=== PATIENT | male | born 1945 | race Caucasian/White ===

== ENCOUNTER 2018-08-19 10:45 | Inpatient (IN) | payer OTHER ==
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
[2018-08-19 14:04] LABS: ALBUMIN 3.8 g/dl (3.4-5.0); ALK PHOS 123 U/L (45-117); ANION GAP 7 MMOL/L (8-16); BILIRUBIN,TOTAL 0.4 mg/dL (0.2-1); BLOOD UREA NITROGEN 28 mg/dL (7-18); CALCIUM 8.4 mg/dL (8.5-10.1); CHLORIDE 102 mmol/L (98-107); CO2 28 mmol/L (21-32); CREATININE 1.5 mg/dL (0.55-1.3); GLUCOSE,RANDOM 111 mg/dL (74-106); MAGNESIUM 2.2 mg/dL (1.8-2.4); PHOSPHOROUS 3.6 mg/dL (2.5-4.9); POTASSIUM 4.2 mmol/L (3.5-5.1); SGOT/AST 18 U/L (15-37); SGPT/ALT 30 U/L (13-61); SODIUM 136 mmol/L (136-145); TOT PROT 7.6 g/dl (6.4-8.2)
[2018-08-19 14:10] LABS: INR 1.07 (0.83-1.09); PROTHROMBIN TIME (PATIENT) 12.6 SEC (9.7-13.0)
[2018-08-19 14:13] LABS: ACTIVATED PTT 37.9 SECONDS (25.2-36.5)
[2018-08-19 14:23] LABS: URINE APPEARANCE CLEAR; URINE BILIRUBIN NEGATIVE (<2.0 mg/dL); URINE COLOR LTYELLOW; URINE GLUCOSE (UA) NEGATIVE (NEGATIVE); URINE KETONE NEGATIVE (NEGATIVE); URINE LEUK ESTERASE NEGATIVE (NEGATIVE); URINE NITRITE NEGATIVE (NEGATIVE); URINE PROTEIN NEGATIVE (NEGATIVE); URINE UROBILINOGEN NEGATIVE mg/dL (0.2-1.0)
[2018-08-19 14:30] LABS: URINE HYALINE CAST 3 /lpf; URINE MUCUS RARE
[2018-08-19 14:37] LABS: BASO % 0.9 % (0-2.0); HEMATOCRIT 42.7 % (35.4-49); HEMOGLOBIN 14.1 GM/dL (11.7-16.9); LYMPH % 18.5 % (8-40); MCH 29.7 pg (25.7-33.7); MCHC 33.1 g/dl (32.0-35.9); MEAN CELL VOLUME 89.7 fl (80-96); MEAN PLT VOLUME 8.2 fl (7.5-11.1); MONO % 7.3 % (3.8-10.2); NEUT % 71.3 % (42.8-82.8); PLATELET COUNT 219 K/MM3 (134-434); RBC 4.76 M/mm3 (4.00-5.60); RDW 13.2 % (11.9-15.9); WHITE BLOOD COUNT 7.8 K/mm3 (4.0-10.0)
[2018-08-19] MEDS ORDERED: ACETAMINOPHEN 325 MG TABLET (FP) PO PRN (17:29)
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
[2018-08-19] MEDS ORDERED: HEPARIN NA (PORCINE) 5,000 UNITS/ML 1ML VIAL ONE (22:02)
[2018-08-19] MEDS: HEPARIN NA (PORCINE) 5,000 UNITS/ML 1ML VIAL SQ SCH (22:07)
[2018-08-20 00:29] VITALS: BMI 41.0
[2018-08-20 07:49] LABS: BASO % 0.8 % (0-2.0); EOS % 2.5 % (0-4.5); HEMOGLOBIN 13.4 GM/dL (11.7-16.9); LYMPH % 19.5 % (8-40); MCH 29.3 pg (25.7-33.7); MCHC 32.7 g/dl (32.0-35.9); MEAN CELL VOLUME 89.5 fl (80-96); MEAN PLT VOLUME 8.1 fl (7.5-11.1); NEUT % 68.2 % (42.8-82.8); PLATELET COUNT 200 K/MM3 (134-434); RBC 4.58 M/mm3 (4.00-5.60); RDW 13.4 % (11.9-15.9); WHITE BLOOD COUNT 7.3 K/mm3 (4.0-10.0)
[2018-08-20 08:05] LABS: ALBUMIN 3.5 g/dl (3.4-5.0); ALK PHOS 119 U/L (45-117); ANION GAP 4 MMOL/L (8-16); BILIRUBIN,TOTAL 0.6 mg/dL (0.2-1); BLOOD UREA NITROGEN 28 mg/dL (7-18); CALCIUM 8.6 mg/dL (8.5-10.1); CHLORIDE 103 mmol/L (98-107); CO2 31 mmol/L (21-32); CREATININE 1.5 mg/dL (0.55-1.3); GLUCOSE,RANDOM 132 mg/dL (74-106); POTASSIUM 4.1 mmol/L (3.5-5.1); SGOT/AST 14 U/L (15-37); SGPT/ALT 26 U/L (13-61); SODIUM 137 mmol/L (136-145)
[2018-08-20] MEDS ORDERED: DONEPEZIL HCL 10 MG TABLET (FP) PO SCH ×2 (10:00→22:00)
[2018-08-20] MEDS: HEPARIN NA (PORCINE) 5,000 UNITS/ML 1ML VIAL SQ SCH ×2 (10:02→21:13)
--- NOTE | 2018-08-20 10:04 | EKG ---
Test Reason : Blood Pressure : / mmHG Vent. Rate : 069 BPM Atrial Rate : 069 BPM P-R Int : 182 ms QRS Dur : 074 ms QT Int : 368 ms P-R-T Axes : 015 036 026 degrees QTc Int : 394 ms NORMAL SINUS RHYTHM NORMAL ECG Confirmed by Russ Hernandez MD ([id number]) on 08/20/2018 10:03:51 AM Referred By: Confirmed By:Russ Hernandez MD
--- NOTE | 2018-08-20 10:44 | CONSULT ---
Consult Consult Specialty:: Plastic Surgery Referred by:: Dr Loki Waters Reason for Consultation:: Large Fungating Growth Left Upper Arm - History of Present Illness Chief Complaint: Large Open wound with drainage , wants it taken care of History of Present Illness: History : 72 year old Male seen regarding a large open wound Left upper Arm. Patient states he has had this Open wound which has been increasing in size for several years...recently he decided to have it checked, biopsy revealed Squamous cell CA. 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 [Santyl] 1 applic TP DAILY #90 oint...g. 08/09/18 Donepezil HCl 1 tab PO DAILY 08/09/18 Hydrochlorothiazide [Hctz -] 1 cap PO DAILY 08/09/18 Cyanocobalamin (Vitamin B-12) [Vitamin B-12] 1,000 mcg PO DAILY 08/19/18 Physical Exam Vital Signs: Vital Signs Temperature 97.9 F 08/20/18 06:03 Pulse Rate 71 08/20/18 06:03 Respiratory Rate 19 08/20/18 06:03 Blood Pressure 147/81 08/20/18 06:03 O2 Sat by Pulse Oximetry (%) 96 08/20/18 00:10 Labs: CBC, BMP 08/20/18 07:00 08/20/18 07:00 Assessment/Plan Examination : Large fungating Open wound with raised edges, fungating, erythema at the margins , drainage from Open wound Swelling at the margins, non tender Function : Upper Arm movement present Obese Lymph Nodes : Negative. Secondary lesion noted in the forearm lateral surface , patient thinks it is present for several weeks, it irritating because of rough surface Lower extremities : Right lower leg swelling with discoloration present, ( No c /o pain or cramps) Plan of care : 1. Wide Excision Left upper Arm Squamous Cell Ca 2. Reconstruction with Split skin graft 3. Need Medical evaluation and Clearance for surgery under local with IV Sedation or General anesthesia Procedure Explained to patient, patient coherent . Answered all questions including site of donor site
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
--- NOTE | 2018-08-20 13:12 | CON.ID ---
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 [Santyl] 1 applic TP DAILY #90 oint...g. 08/09/18 Donepezil HCl 1 tab PO DAILY 08/09/18 Hydrochlorothiazide [Hctz -] 1 cap PO DAILY 08/09/18 Cyanocobalamin (Vitamin B-12) [Vitamin B-12] 1,000 mcg PO DAILY 08/19/18 Physical Exam Vital Signs: Vital Signs Temperature 98.2 F 08/20/18 08:00 Pulse Rate 79 08/20/18 08:00 Respiratory Rate 20 08/20/18 08:00 Blood Pressure 161/88 08/20/18 08:00 O2 Sat by Pulse Oximetry (%) 96 08/20/18 08:00 Labs: CBC, BMP 08/20/18 07:00 08/20/18 07:00
--- NOTE | 2018-08-20 13:38 | ECHO ---
Name: LULY MONTOYA Exam:Adult Echocardiogram Study Date: 08/20/2018 12:45 PM Age: 72 yrs Reason For Study: LV Function Height: 70 in Weight: 286 lb BSA: 2.4 m2 MMode/2D Measurements & Calculations Ao root diam: 2.8 cm LAV (MOD-bp): 82.9 ml Doppler Measurements & Calculations MV E max lenin: 80.0 cm/sec Med Peak E' Lenin: 8.6 cm/sec MV A max lenin: 76.2 cm/sec Med E/e': 9.3 MV E/A: 1.1 Lat Peak E' Lenin: 12.5 cm/sec MV dec time: 0.14 sec Lat E/e': 6.4 Procedure A complete two-dimensional transthoracic echocardiogram was performed (2D, M-mode, Doppler and color flow Doppler). The study was technically difficult with many images being suboptimal in quality. Left Ventricle The left ventricle is grossly normal size. Left ventricular systolic function is grossly normal. Ejec tion Fraction = 60%. The transmitral spectral Doppler flow pattern is suggestive of impaired LV relaxation . Regional wall motion abnormalities cannot be excluded due to limited visualization. Right Ventricle The right ventricle is not well visualized. Atria The left atrium is not well visualized. Right atrium not well visualized. Mitral Valve The mitral valve is not well visualized. There is trace mitral regurgitation. Tricuspid Valve The tricuspid valve is not well visualized. There is trace tricuspid regurgitation. There was insuffi cient TR detected to calculate RV systolic pressure. Aortic Valve There is trivial aortic valve thickening. Pulmonic Valve The pulmonic valve is not well visualized. Great Vessels The aortic root is not well visualized. Pericardium/Pleura There is no pericardial effusion. There is no pleural effusion. Interpretation Summary Left ventricular systolic function is grossly normal. Ejection Fraction = 60%. The transmitral spectral Doppler flow pattern is suggestive of impaired LV relaxation. Regional wall motion abnormalities cannot be excluded due to limited visualization. There is trace mitral regurgitation. There is trace tricuspid regurgitation. There was insufficient TR detected to calculate RV systolic pressure. There is trivial aortic valve thickening. The study was technically difficult with many images being suboptimal in quality. MD Russ Hernandez 08/20/2018 01:37 PM
--- NOTE | 2018-08-20 18:06 | PN ---
Progress Note, Physician - Current Medication List Current Medications: Active Medications Acetaminophen (Tylenol -) 650 mg PO Q6H PRN PRN Reason: FEVER Donepezil HCl (Aricept -) 10 mg PO DAILY [facility] Last Admin: 08/20/18 10:00 Dose: Not Given Heparin Sodium (Porcine) (Heparin -) 5,000 unit SQ BID [facility] Last Admin: 08/20/18 10:02 Dose: 5,000 unit - Objective Vital Signs: Vital Signs Temperature 98.4 F 08/20/18 14:26 Pulse Rate 80 08/20/18 14:26 Respiratory Rate 20 08/20/18 08:00 Blood Pressure 164/82 08/20/18 14:26 O2 Sat by Pulse Oximetry (%) 96 08/20/18 08:00 HENT: Yes: Atraumatic Neck: Yes: Supple Cardiovascular: Yes: Regular Rate and Rhythm Respiratory: Yes: CTA Bilaterally Gastrointestinal: Yes: Normal Bowel Sounds Extremities: Yes: Other (left arm wound) Edema: No Peripheral Pulses WNL: Yes Neurological: Yes: Alert, Oriented Labs: CBC, BMP 08/20/18 07:00 08/20/18 07:00 INR, PTT INR 1.07 (0.83-1.09) 08/19/18 13:19 Problem List - Problems (1) Skin carcinoma Code(s): C44.99 - OTHER SPECIFIED MALIGNANT NEOPLASM OF SKIN, UNSPECIFIED (2) Open wound of left upper arm Assessment/Plan: wound care dressing change plastic surgery consult Code(s): S41.102A - UNSPECIFIED OPEN WOUND OF LEFT UPPER ARM, INITIAL ENCOUNTER Qualifiers:
--- NOTE | 2018-08-20 18:34 | PN ---
Teaching Attending Note Name of Resident: Dorothy Laughlin ATTENDING PHYSICIAN STATEMENT I saw and evaluated the patient. I reviewed the resident's note and discussed the case with the resident. I agree with the resident's findings and plan as documented. 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 For wide excision and skin grafting Last Vital Signs Temp Pulse Resp BP Pulse Ox 98.4 F 80 20 164/82 96 08/20/18 14:26 08/20/18 14:26 08/20/18 08:00 08/20/18 14:26 08/20/18 08:00 HEENT: ZACH, EOM Intact Oropharynx: No thrush, No mucositis Neck: Supple Cor: RSR, No murmurs, No gallops Lungs: Clear to P&A Abd: Soft, Normal bowel sounds, No organomegaly Ext:LUE ulcerating lesion left deltoid Stasis lower extremity CBC, BMP 08/20/18 07:00 08/20/18 07:00 INR, PTT INR 1.07 (0.83-1.09) 08/19/18 13:19 Current Medications Generic Name Dose Route Start Last Admin Trade Name Freq PRN Reason Stop Dose Admin Acetaminophen 650 mg 08/19/18 17:29 Tylenol - PO Q6H PRN FEVER Donepezil HCl 10 mg 08/20/18 10:00 08/20/18 10:00 Aricept - PO Not Given DAILY [facility] Heparin Sodium (Porcine) 5,000 unit 08/19/18 22:00 08/20/18 10:02 Heparin - SQ 5,000 unit BID CONNIE Administration OBJECTIVE:Impression: Invasive carcinoma- squamous and baseloid features Plan - wide excision and skin grafting Hematuria-- passing kidney stones last few days - need stone analysis ( has stone ) Elevated Alk Phos- for GGTP Elevated PTT - ? occult liver disease - await GGTP ASSESSMENT AND PLAN:
[2018-08-20] MEDS: HYDROCHLOROTHIAZIDE 25 MG TABLET (FP) PO SCH (21:13)
[2018-08-21] MEDS: HEPARIN NA (PORCINE) 5,000 UNITS/ML 1ML VIAL SQ SCH ×2 (09:28→22:04)
[2018-08-21] MEDS: HYDROCHLOROTHIAZIDE 25 MG TABLET (FP) PO SCH (09:28)
--- NOTE | 2018-08-21 12:29 | PN ---
Progress Note, Physician History of Present Illness: no complaints awaiting for excision of the lesion - Current Medication List Current Medications: Active Medications Acetaminophen (Tylenol -) 650 mg PO Q6H PRN PRN Reason: FEVER Donepezil HCl (Aricept -) 10 mg PO HS [facility] Last Admin: 08/20/18 21:13 Dose: 10 mg Heparin Sodium (Porcine) (Heparin -) 5,000 unit SQ BID [facility] Last Admin: 08/21/18 09:28 Dose: Not Given Hydrochlorothiazide (Hctz -) 25 mg PO DAILY [facility] Last Admin: 08/21/18 09:28 Dose: Not Given - Objective Vital Signs: Vital Signs Temperature 98.0 F 08/21/18 08:00 Pulse Rate 75 08/21/18 08:00 Respiratory Rate 20 08/21/18 08:00 Blood Pressure 142/88 08/21/18 08:00 O2 Sat by Pulse Oximetry (%) 97 08/21/18 08:00 Constitutional: Yes: No Distress, Calm, Obese Cardiovascular: Yes: Regular Rate and Rhythm Respiratory: Yes: Regular, CTA Bilaterally Gastrointestinal: Yes: Normal Bowel Sounds, Soft Musculoskeletal: Yes: WNL Extremities: Yes: Other (left lesion on the hand--carcinoma) Wound/Incision: Yes: Dressing Dry and Intact Neurological: Yes: Alert, Oriented Psychiatric: Yes: Alert, Oriented Labs: CBC, BMP 08/20/18 07:00 08/20/18 07:00 INR, PTT INR 1.07 (0.83-1.09) 08/19/18 13:19 Assessment/Plan Problem List - Problems (1) Skin carcinoma Code(s): C44.99 - OTHER SPECIFIED MALIGNANT NEOPLASM OF SKIN, UNSPECIFIED (2) Open wound of left upper arm Code(s): S41.102A - UNSPECIFIED OPEN WOUND OF LEFT UPPER ARM, INITIAL ENCOUNTER Qualifiers: plan patient for excision rest as per the team
[2018-08-21] MEDS ORDERED: fentaNYL CITRATE 250 MCG/5 ML VIAL ONE (13:14)
[2018-08-21] MEDS ORDERED: MIDAZOLAM HCL 2 MG/2 ML SINGLE DOSE VIAL ONE (13:14)
[2018-08-21] MEDS ORDERED: PROPOFOL 20 ML ONE (13:14)
--- NOTE | 2018-08-21 13:14 | CON.CARD ---
Consult Consult Specialty:: Cardiology Referred by:: Rahul Waters MD Reason for Consultation:: Pre-operative cardiovascular evaluation - History of Present Illness Chief Complaint: Left upper extremity skin cancer History of Present Illness: 72 yr old man with poor medical f/u presented to wound clinic with nonhealing left extremity ulcer progressing for the past 10 yrs and was found to have invasive carcinoma with squamous and basaloid features seen on punch biopsy (2018) underwent wide excision and skin grafting. He remains asymptomatic from CV -standpoint and denies chest pain, dyspnea, palpitations, near or true syncope, orthopnea, PND or LE edema. 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 [Santyl] 1 applic TP DAILY #90 oint...g. 08/09/18 Donepezil HCl 1 tab PO DAILY 08/09/18 Hydrochlorothiazide [Hctz -] 1 cap PO DAILY 08/09/18 Cyanocobalamin (Vitamin B-12) [Vitamin B-12] 1,000 mcg PO DAILY 08/19/18 Vital Signs: Vital Signs Temperature 98.0 F 08/21/18 08:00 Pulse Rate 75 08/21/18 08:00 Respiratory Rate 20 08/21/18 08:00 Blood Pressure 142/88 08/21/18 08:00 O2 Sat by Pulse Oximetry (%) 97 08/21/18 08:00 Constitutional: Yes: No Distress, Calm Neck: Yes: Supple Respiratory: Yes: Regular, CTA Bilaterally Gastrointestinal: Yes: Normal Bowel Sounds, Soft Cardiovascular: Yes: Regular Rate and Rhythm JVD: No Carotid Bruit: No Heart Sounds: Yes: S1, S2 Edema: No - Other Data Labs, Other Data: CBC, BMP 08/20/18 07:00 08/20/18 07:00 INR, PTT INR 1.07 (0.83-1.09) 08/19/18 13:19 NSR@[address]-T changes Ejection Fraction %: LVEF > or = 40 % Imaging - Results Chest X-ray: Report Reviewed (NAD) Problem List - Problems (1) Hypertension Code(s): I10 - ESSENTIAL (PRIMARY) HYPERTENSION Qualifiers: Hypertension type: essential hypertension Qualified Code(s): I10 - Essential (primary) hypertension (2) CKD (chronic kidney disease) Code(s): N18.9 - CHRONIC KIDNEY DISEASE, UNSPECIFIED Qualifiers: Chronic kidney disease stage: stage 2 (mild) Qualified Code(s): N18.2 - Chronic kidney disease, stage 2 (mild) (3) Skin carcinoma Code(s): C44.99 - OTHER SPECIFIED MALIGNANT NEOPLASM OF SKIN, UNSPECIFIED (4) Open wound of left upper arm Code(s): S41.102A - UNSPECIFIED OPEN WOUND OF LEFT UPPER ARM, INITIAL ENCOUNTER Qualifiers: Encounter type: subsequent encounter Assessment/Plan 08/20/2018 Echo: Normal LV size and fxn, tr MR, TR 1. Invasive carcinoma- squamous and baseloid features post wide excision and skin grafting 2. HTN 3. CKD P:1. Continue antihypertensive agent 2. F/u pathology, post-op wound care 3. Thank you for consultative opportunity
[2018-08-21] MEDS ORDERED: ceFAZolin SODIUM 1 GM VIAL IVPB ONE (13:50)
[2018-08-21] MEDS ORDERED: LIDOCAINE 1%/EPI 1:100000 (20 ML MULTI DOSE VIAL) IJ ONE (13:59)
--- NOTE | 2018-08-21 14:42 | PN ---
Progress Note, Physician - Current Medication List Current Medications: Active Medications Acetaminophen (Tylenol -) 650 mg PO Q6H PRN PRN Reason: FEVER Donepezil HCl (Aricept -) 10 mg PO HS [facility] Last Admin: 08/20/18 21:13 Dose: 10 mg Heparin Sodium (Porcine) (Heparin -) 5,000 unit SQ BID [facility] Last Admin: 08/21/18 09:28 Dose: Not Given Hydrochlorothiazide (Hctz -) 25 mg PO DAILY [facility] Last Admin: 08/21/18 09:28 Dose: Not Given - Objective Vital Signs: Vital Signs Temperature 98.0 F 08/21/18 13:59 Pulse Rate 92 H 08/21/18 13:59 Respiratory Rate 20 08/21/18 08:00 Blood Pressure 142/88 08/21/18 13:59 O2 Sat by Pulse Oximetry (%) 97 08/21/18 08:00 Constitutional: Yes: No Distress HENT: Yes: Atraumatic Neck: Yes: Supple Cardiovascular: Yes: Regular Rate and Rhythm Respiratory: Yes: CTA Bilaterally Extremities: Yes: Other (left arm in dressing) Edema: No Peripheral Pulses WNL: No Neurological: Yes: Alert Labs: CBC, BMP 08/20/18 07:00 08/20/18 07:00 INR, PTT INR 1.07 (0.83-1.09) 08/19/18 13:19 Problem List - Problems (1) Skin carcinoma Assessment/Plan: for surgery Code(s): C44.99 - OTHER SPECIFIED MALIGNANT NEOPLASM OF SKIN, UNSPECIFIED (2) Open wound of left upper arm Assessment/Plan: wound care dressing change plastic surgery consult Code(s): S41.102A - UNSPECIFIED OPEN WOUND OF LEFT UPPER ARM, INITIAL ENCOUNTER Qualifiers: Encounter type: subsequent encounter
[2018-08-21] MEDS ORDERED: DESFLURANE GAS 240 ML BOTTLE IH ONE (15:14)
[2018-08-21] MEDS ORDERED: DEXAMETHASONE SOD PHOSPHATE 4 MG/1 ML VIAL ONE (15:40)
[2018-08-21] MEDS ORDERED: BACITRACIN 15 GM TUBE TOPICAL OINTMENT ONE (15:41)
[2018-08-21] MEDS ORDERED: ONDANSETRON 4 MG/2 ML VIAL IVPUSH PRN (16:11)
[2018-08-21] MEDS ORDERED: oxyCODONE HCL 5 MG TABLET PO PRN (16:11)
[2018-08-21] MEDS ORDERED: LACTATED RINGERS SOLUTION 1,000 ML IV SCH (16:15)
--- NOTE | 2018-08-21 18:10 | PN ---
Progress Note (short form) - Note Progress Note: Seen post op In sling Denies significant pains S/P excision of ulerating squamous cell ca with skin grafting - await path.
[2018-08-21] MEDS ORDERED: ACETAMINOPHEN 325 MG TABLET (FP) PO PRN (20:48)
--- NOTE | 2018-08-21 20:59 | OP ---
DATE OF OPERATION: DATE OF DICTATION: 08/21/2018 PREOPERATIVE DIAGNOSIS: 1. 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 2. Tumor left forearm. PROCEDURE: 1. Wide excision basal squamous cell carcinoma left upper arm. 2 . Reconstruction with split thickness skin graft. 3. Excision forearm tumor left. 4. Skin graft. SURGEON: Dylon Henson M.D. ANESTHESIA: General supplemented with 1% lidocaine with epinephrine, total of 20 mL. HISTORY: Patient is 72-year-old male seen at [facility] on consultation regarding a very large nonhealing wound. Patient states this has been there possibly around 7 years. He has been tolerating the wound, but he sought advice from several physicians, including vaguely from a nurse practitioner who has been treating him without healing. PREOPERATIVE DIAGNOSIS: 1. 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 2. Tumor left forearm. FINDINGS: 1. Wide excision basal squamous cell carcinoma measuring over 6.4 x 5.5 x 0.3 cm. 2. Tumor located on the dorsal aspect of his left forearm measures 2.2 cm raised by 0.4 cm. DESCRIPTION OF PROCEDURE: Patient was brought to the operating room. Procedure had been explained in the holding area. All the questions were answered. Markings were carried out staying about 1 cm from the visible margin, large circular markings were carried around the skin and subcutaneous tissue. The patient was then brought to the operating room. Transferred over to the operating table. General anesthesia administered. A timeout carried out. Patient was identified including the procedure and the site. Once agreed, subcutaneous tissue was injected with 1% lidocaine with epinephrine around left forearm. A tumor on the forearm and arm were both injected with the same solution of 1% lidocaine with epinephrine. Skin prep done with Betadine soak and solution and then draped in a standard aseptic manner. Tumor on left forearm was first excised in a circular manner. It measured 0.2 x 0.2, after excision it measured 2.5 x 2.5 cm, full thickness excision was carried out to the level of the fascia. Hemostasis was secured with cautery. Split thickness skin graft was applied to the area, immobilized using Dermabond. Large tumor on left shoulder was then excised vertically down to the fascia. It was then dissected off the fascia using electrocautery. At the midpoint, there was some fibrotic fat which was noted. This was excised, suture was placed for identification of the base. Entire tumor was then sent for pathology with markers placed at 12 o'clock and 6 o'clock and base of the tumor. Skin edges had to be mobilized. Defect was now measuring 10 x 8 cm. Skin edges were then advanced and stabilized using 3.0 undyed Vicryl sutures. Rest of the defect was then reconstructed with split thickness skin graft taken with a brown dermatome and mesh . Skin edges had to be then on skin graft immobilized using gauze as well as Dermabond. Graft was very delicate. It was then stabilized and immobilized using dry gauze followed by Xeroform, bacitracin. Arm was wrapped with Janiya. Entire limb was then immobilized in a sling. Hemostasis was secured with electrocautery. Estimated blood loss was less than 50 mL. Circulation to the fingers was intact. Swelling was 2+ around the hand. Patient was given a gram of Ancef prior to starting the procedure. He had SCDs placed on both his lower extremities including he was given heparin for DVT prophylaxis. Awaiting pathology report. Patient will be needing IV antibiotics due to the significant involvement of the subcutaneous tissue. DYLON HENSON M.D. [id number]
[2018-08-21] MEDS ORDERED: DONEPEZIL HCL 10 MG TABLET (FP) PO SCH (22:00)
[2018-08-22] MEDS ORDERED: HYDROCHLOROTHIAZIDE 25 MG TABLET (FP) PO SCH (10:00)
[2018-08-22] MEDS: HEPARIN NA (PORCINE) 5,000 UNITS/ML 1ML VIAL SQ SCH (10:34)
--- NOTE | 2018-08-22 11:27 | PN ---
Progress Note (short form) - Note Progress Note: Post Op Day 1 Awake, alert, no complaining of pain / Left Arm n loose sling , readjusted to keep it elevated Dressings over the Upper Arm intact, no excessive bleeding Donor site slight oozing, need change. Dr Felton note appreciated, awaiting Path report DR Jordan
--- NOTE | 2018-08-22 11:49 | PN ---
Progress Note (short form) - Note Progress Note: Home Care Instructions 1. No Showers , except sponge Bath 2. Keep dressings dry 3. Home Care Nurses to evaluate for excessive bleeding, fever, unusal pain , in left Arm and Thigh 4. Do not change Left Arm dressing unless falling off, call Dr Jordan for instructions 5 Donor Site Left thigh, expect some oozing, unless excessive call Dr Jordan 6. Assist patient with essentials if needed 7. Check Temperature if over 101F inform MD Follow Up in Wound clinic x 1 week Sunday
--- NOTE | 2018-08-22 15:55 | PN ---
Progress Note, Physician - Current Medication List Current Medications: Active Medications Acetaminophen (Tylenol -) 650 mg PO Q6H PRN PRN Reason: FEVER Donepezil HCl (Aricept -) 10 mg PO HS [facility] Last Admin: 08/21/18 22:03 Dose: 10 mg Heparin Sodium (Porcine) (Heparin -) 5,000 unit SQ BID [facility] Last Admin: 08/22/18 10:34 Dose: 5,000 unit Hydrochlorothiazide (Hctz -) 25 mg PO DAILY [facility] Last Admin: 08/22/18 10:34 Dose: 25 mg - Objective Vital Signs: Vital Signs Temperature 98.0 F 08/22/18 06:00 Pulse Rate 71 08/22/18 06:00 Respiratory Rate 18 08/22/18 06:00 Blood Pressure 120/75 08/22/18 06:00 O2 Sat by Pulse Oximetry (%) 98 08/21/18 18:17 Labs: CBC, BMP 08/20/18 07:00 08/20/18 07:00 INR, PTT INR 1.07 (0.83-1.09) 08/19/18 13:19
[2018-08-22 16:07] VITALS: BP 124/73; PULSE 84; TEMP 98
--- NOTE | 2018-08-22 16:07 | DS ---
Physical Examination Vital Signs: Vital Signs Temperature 98.0 F 08/22/18 06:00 Pulse Rate 71 08/22/18 06:00 Respiratory Rate 18 08/22/18 06:00 Blood Pressure 120/75 08/22/18 06:00 O2 Sat by Pulse Oximetry (%) 98 08/21/18 18:17 Constitutional: Yes: No Distress HENT: Yes: Atraumatic Neck: Yes: Supple Cardiovascular: Yes: Regular Rate and Rhythm Respiratory: Yes: CTA Bilaterally Gastrointestinal: Yes: Normal Bowel Sounds Extremities: Yes: Other (left arm in dressing) Edema: Yes Edema: LUE: Trace Neurological: Yes: Alert, Oriented Labs: CBC, BMP 08/20/18 07:00 08/20/18 07:00 Discharge Summary Reason For Visit: CARCINOMA OF SKIN Current Active Problems CKD (chronic kidney disease) (Acute) Hypertension (Acute) Skin carcinoma (Acute) Condition: Stable - Instructions Diet, Activity, Other Instructions: follow up wound care as per dr crandall Home Care Instructions 1. No Showers , except sponge Bath 2. Keep dressings dry 3. Home Care Nurses to evaluate for excessive bleeding, fever, unusal pain , in left Arm and Thigh 4. Do not change Left Arm dressing unless falling off, call Dr Crandall for instructions 5 Donor Site Left thigh, expect some oozing, unless excessive call Dr Crandall 6. Assist patient with essentials if needed 7. Check Temperature if over 101F inform MD Follow Up in Wound clinic x 1 week Sunday morning - Home Medications Comprehensive Discharge Medication List: Ambulatory Orders Collagenase Clostridium Hist. [Santyl] 1 applic TP DAILY #90 oint...g. 08/09/18 Donepezil HCl 1 tab PO DAILY 08/09/18 Hydrochlorothiazide [Hctz -] 1 cap PO DAILY 08/09/18 Cyanocobalamin (Vitamin B-12) [Vitamin B-12] 1,000 mcg PO DAILY 08/19/18 [facility]
--- NOTE | 2018-08-27 14:28 | PATH ---
Surgical Pathology Report Patient Name: LULY MONTOYA [facility]. Rec. #: [id number] /Age/Gender: 1945 (Age: 72) / M Account: [id number] Location: [address] [place] [address] Taken: 08/21/2018 Received: 08/22/2018 Reported: 08/27/2018 Physicians: Nataly Jordan M.D. PHYSICIAN EMERGENCY DEPT Specimen(s) Received A: LEFT ARM TUMOR/MASS B: LEFT UPPER ARM SQUAMOUS CELL CARCINOMA Clinical History Nonhealing wound times several months? Years Biopsy squamous cell carcinoma, carcinoma of skin left arm (forearm and upper arm) Final Diagnosis A. LEFT ARM TUMOR/MASS, EXCISION: INVASIVE SQUAMOUS CELL CARCINOMA, WELL DIFFERENTIATED, WITH KERATOACANTHOMA FEATURES, MEASURING 0.5 CM IN GREATEST DIMENSION. MARGINS ARE NEGATIVE FOR CARCINOMA. CARCINOMA TO THE CLOSEST SKIN MARGIN IS 5 MM. B. LEFT UPPER ARM SQUAMOUS CELL CARCINOMA, EXCISION: INVASIVE SQUAMOUS CELL CARCINOMA, MODERATELY DIFFERENTIATED, WITH BASALOID FEATURES AND ASSOCIATED ULCERATION, MEASURING 6.3 CM IN GREATEST DIMENSION. LYMPHOVASCULAR INVASION NOT IDENTIFIED. MARGINS ARE NEGATIVE FOR CARCINOMA. CARCINOMA TO THE CLOSEST SKIN MARGIN AND DEEP MARGIN IS 6 MM. Electronically Signed Cora Carrera M.D. Gross Description A. Received in formalin labeled "left arm tumor/mass," is a 1.6 x 1.4 cm freeman, ovoid portion of skin excised to depth of 0.3 cm. There are 2 long sutures marking the 3 o'clock position and 2 short sutures marking the 12 o'clock position, per the surgeon. The epidermal surface displays a 1.0 x 0.8 cm freeman, raised nodule. The specimen is inked as follows: 12:00 to 3:00 to 6:00 blue; 6:00 to 9:00 to 12:00 green; deep black. The specimen is serially sectioned from 12:00 to 6:00. The specimen is entirely and sequentially submitted in 4 cassettes with the 12:00 tip in cassette 1 and the 6:00 tip in cassette 4. B. Received in formalin labeled "left upper arm squamous cell carcinoma," is a 7.4 x 7.2 cm freeman, ovoid portion of skin excised to a depth of 2.7 cm. There are 2 long sutures at the 12 o'clock position, 2 short sutures at the 6 o'clock position and 1 long and 1 short suture at the base of the specimen. The epidermal surface displays a 6.3 x 5.2 cm centrally ulcerated lesion. The lesion is 0.6 cm from the closest (4:00) radial margin. The specimen is inked as follows: 12:00 to 3:00 blue; 3:00 to 6:00 red; 6:00 to 9:00 green; 9:00 to 12:00 yellow; deep black. Prototype Special Build sections are submitted in 15 cassettes as follows: 1-lesion to 1:00; 2-lesion to 2:00; 3-lesion to 3:00; 4-lesion to 4:00; 5-lesion to 5:00; 6-lesion to 6:00; 7-lesion to 7:00; 8-lesion to 8:00; 9-lesion to 9:00; 10-lesion to 10:00; 11-lesion to 11:00; 12-lesion to 12:00; [id number] to deep. DL08/22/2018 [facility]08/22/2018
== END 2018-08-22 18:26 | disposition home health service (06) | DRG 577 ==
LOC: JER 10:45 → JERBED 15:58 → J6S 23:20
PROVIDERS: ADMIT Internal Medicine; ATTEND Internal Medicine
PROC: 0HR Skin and Breast, Replacement (ICD-10-PCS; 2018-08-21)
PROC: 0JBF0ZZ Excision of Left Upper Arm Subcutaneous Tissue and Fascia, Open Approach (ICD-10-PCS; 2018-08-21)
PROC: 0XU Anatomical Regions, Upper Extremities, Supplement (ICD-10-PCS; principal; 2018-08-21 14:00)
DX: C44.629 Squamous cell carcinoma of skin of left upper limb, including shoulder (principal); Z68.41 Body mass index [BMI] 40.0-44.9, adult; N17.9 Acute kidney failure, unspecified; N20.0 Calculus of kidney; R31.9 Hematuria, unspecified; I12.9 Hypertensive chronic kidney disease with stage 1 through stage 4 chronic kidney disease, or unspecified chronic kidney disease; N18.2 Chronic kidney disease, stage 2 (mild); E66.9 Obesity, unspecified
CPT/HCPCS: 36415; 71045-TC-FY; 80053; 81003; 81015; 82550; 82977; 83735; 84100; 84484; 85025; 85610; 85730; 87086; 88307-TC; 93005; 93010; 93306-TC; 94760; 99284-25; G0463-25; J1644

== ENCOUNTER 2022-10-09 12:56 | Observation (INO) | payer OTHER ==
[2022-10-09] MEDS ORDERED: ACETAMINOPHEN 1000 MG/100 ML BAG IVPB ONE (14:57)
[2022-10-09] MEDS ORDERED: VANCOMYCIN 1 GM in D5W (PRE-DOCKED) 1,000 MG/250 ML IVPB ONE (14:57)
[2022-10-09] MEDS ORDERED: ACETAMINOPHEN INJECTION 100 ML IVPB ONE (15:58)
[2022-10-09] MEDS ORDERED: VANCOMYCIN/WATER FOR INJ (PEG) 1,000 MG/200 ML BAG IVPB ONE (15:58)
[2022-10-09 16:48] LABS: BASO % 0.8 % (0-2.0); HEMATOCRIT 39.4 % (35.4-49); HEMOGLOBIN 13.2 GM/dL (11.7-16.9); LYMPH % 14.3 % (8-40); MCH 29.6 pg (25.7-33.7); MCHC 33.5 g/dl (32.0-35.9); MEAN CELL VOLUME 88.4 fl (80-96); MEAN PLT VOLUME 8.2 fl (7.5-11.1); MONO % 7.8 % (3.8-10.2); NEUT % 76.1 % (42.8-82.8); PLATELET COUNT 234 10^3/uL (134-434); RBC 4.46 M/mm3 (4.00-5.60); RDW 14.8 % (11.9-15.9); WHITE BLOOD COUNT 8.5 K/mm3 (4.0-10.0)
[2022-10-09 17:10] LABS: ALBUMIN 3.6 g/dl (3.4-5.0); CALCIUM 8.5 mg/dL (8.5-10.1)
[2022-10-09 17:11] LABS: BLOOD UREA NITROGEN 23.5 mg/dL (7-18)
[2022-10-09 17:14] LABS: CREATININE 1.2 mg/dL (0.55-1.3)
[2022-10-09 17:15] LABS: BILIRUBIN,TOTAL 0.5 mg/dL (0.2-1); TOT PROT 7.3 g/dl (6.4-8.2)
[2022-10-09 17:19] LABS: N-TERMINAL BNP 270.7 pg/ml (5-125)
[2022-10-10] MEDS ORDERED: FUROSEMIDE 40 MG/4 ML INJECTABLE VIAL IVPUSH ONE (00:19)
[2022-10-10 00:57] VITALS: BMI 48.8
[2022-10-10] MEDS: ACETAMINOPHEN 1000 MG/100 ML BAG IVPB PRN ×2 (02:00→14:47)
[2022-10-10] MEDS: FUROSEMIDE 40 MG/4 ML INJECTABLE VIAL IVPUSH SCH ×2 (06:21→14:40)
[2022-10-10] MEDS: VANCOMYCIN/WATER 2 GM/400 ML PREMIX BAG IVPB SCH ×2 (06:21→20:26)
[2022-10-10] MEDS: INSULIN SLIDING SCALE (NOVOLOG) 1 VIAL SQ SCH ×4 (06:39→22:22)
[2022-10-10 09:28] LABS: HEMATOCRIT 40.3 % (35.4-49); HEMOGLOBIN 13.8 GM/dL (11.7-16.9); MCH 30.2 pg (25.7-33.7); MCHC 34.2 g/dl (32.0-35.9); MEAN CELL VOLUME 88.5 fl (80-96); MEAN PLT VOLUME 8.2 fl (7.5-11.1); PLATELET COUNT 264 10^3/uL (134-434); RBC 4.55 M/mm3 (4.00-5.60); RDW 15.1 % (11.9-15.9); WHITE BLOOD COUNT 6.9 K/mm3 (4.0-10.0)
[2022-10-10 09:54] LABS: BLOOD UREA NITROGEN 26.7 mg/dL (7-18)
[2022-10-10 09:57] LABS: ALBUMIN 3.8 g/dl (3.4-5.0); MAGNESIUM 1.9 mg/dL (1.8-2.4)
[2022-10-10 10:01] LABS: CREATININE 1.5 mg/dL (0.55-1.3); PHOSPHOROUS 3.8 mg/dL (2.5-4.9)
[2022-10-10 10:03] LABS: BILIRUBIN,TOTAL 0.6 mg/dL (0.2-1)
[2022-10-10 10:04] LABS: TOT PROT 7.8 g/dl (6.4-8.2)
[2022-10-10 10:06] LABS: ERYTHROCYTE SEDIMENTATION RATE 39 mm/hr (0-20)
[2022-10-10] MEDS: LOSARTAN POTASSIUM 50 MG TABLET PO SCH (12:02)
[2022-10-10] MEDS: ENOXAPARIN NA (PORCINE) 40 MG/0.4 ML DISP.SYRIN SQ SCH ×2 (12:08→22:22)
[2022-10-10] MEDS: PIPERACILLIN/TAZOB 3.375 GM 3.375 GM in DEXTROSE 5%-WATER - 50 ML IVPB SCH ×2 (15:57→18:06)
[2022-10-10] MEDS: DOXYCYCLINE HYCLATE 100 MG CAPSULE PO SCH (18:06)
[2022-10-10] MEDS: DONEPEZIL HCL 10 MG TABLET (FP) PO SCH (22:22)
[2022-10-11] MEDS: PIPERACILLIN/TAZOB 3.375 GM 3.375 GM in DEXTROSE 5%-WATER - 50 ML IVPB SCH ×3 (01:27→18:45)
[2022-10-11] MEDS: FUROSEMIDE 40 MG/4 ML INJECTABLE VIAL IVPUSH SCH (05:46)
[2022-10-11] MEDS ORDERED: VANCOMYCIN/WATER 2 GM/400 ML PREMIX BAG IVPB SCH (06:00)
[2022-10-11] MEDS: INSULIN SLIDING SCALE (NOVOLOG) 1 VIAL SQ SCH ×4 (06:06→22:17)
[2022-10-11] MEDS: DOXYCYCLINE HYCLATE 100 MG CAPSULE PO SCH ×2 (11:30→18:45)
[2022-10-11] MEDS: ENOXAPARIN NA (PORCINE) 40 MG/0.4 ML DISP.SYRIN SQ SCH ×2 (11:31→22:14)
[2022-10-11] MEDS: LOSARTAN POTASSIUM 50 MG TABLET PO SCH (11:31)
[2022-10-11] MEDS: DONEPEZIL HCL 10 MG TABLET (FP) PO SCH (22:11)
[2022-10-12] MEDS: PIPERACILLIN/TAZOB 3.375 GM 3.375 GM in DEXTROSE 5%-WATER - 50 ML IVPB SCH ×3 (02:18→17:28)
[2022-10-12] MEDS: INSULIN SLIDING SCALE (NOVOLOG) 1 VIAL SQ SCH ×4 (06:27→21:36)
[2022-10-12 09:51] LABS: BLOOD UREA NITROGEN 37.6 mg/dL (7-18); CALCIUM 8.9 mg/dL (8.5-10.1); MAGNESIUM 2.1 mg/dL (1.8-2.4)
[2022-10-12 09:53] LABS: CREATININE 1.6 mg/dL (0.55-1.3); PHOSPHOROUS 4.1 mg/dL (2.5-4.9)
[2022-10-12] MEDS ORDERED: PIPERACILLIN/TAZOBACTAM 3.375 GM VIAL IVPB ONE (10:43)
[2022-10-12] MEDS: ENOXAPARIN NA (PORCINE) 40 MG/0.4 ML DISP.SYRIN SQ SCH ×2 (10:45→21:37)
[2022-10-12] MEDS: DOXYCYCLINE HYCLATE 100 MG CAPSULE PO SCH ×2 (10:45→17:28)
[2022-10-12] MEDS: LOSARTAN POTASSIUM 50 MG TABLET PO SCH (10:45)
[2022-10-12] MEDS: NYSTATIN 100,000 UNIT/GM TOPICAL CREAM 15 GM TUBE TP SCH ×2 (15:50→21:37)
[2022-10-12] MEDS: DONEPEZIL HCL 10 MG TABLET (FP) PO SCH (21:36)
[2022-10-13] MEDS: PIPERACILLIN/TAZOB 3.375 GM 3.375 GM in DEXTROSE 5%-WATER - 50 ML IVPB SCH ×3 (01:19→17:29)
[2022-10-13] MEDS: INSULIN SLIDING SCALE (NOVOLOG) 1 VIAL SQ SCH ×4 (07:00→23:55)
[2022-10-13] MEDS: INSULIN (LEVEMIR) 100 UNITS/ML UNITS SQ SCH ×2 (08:48→23:55)
[2022-10-13] MEDS: ENOXAPARIN NA (PORCINE) 40 MG/0.4 ML DISP.SYRIN SQ SCH ×2 (09:38→23:55)
[2022-10-13] MEDS: NYSTATIN 100,000 UNIT/GM TOPICAL CREAM 15 GM TUBE TP SCH ×2 (09:38→23:54)
[2022-10-13] MEDS: DOXYCYCLINE HYCLATE 100 MG CAPSULE PO SCH ×2 (09:38→17:30)
[2022-10-13] MEDS ORDERED: LACTATED RINGERS SOLUTION 1,000 ML/1,000 ML INFUS.BAG IV SCH (10:45)
[2022-10-13 12:31] LABS: CALCIUM 9.1 mg/dL (8.5-10.1)
[2022-10-13 12:32] LABS: BLOOD UREA NITROGEN 39.2 mg/dL (7-18)
[2022-10-13 12:35] LABS: CREATININE 1.7 mg/dL (0.55-1.3)
[2022-10-13] MEDS ORDERED: INSULIN (NOVOLOG) ASPART 100 UNITS/ML 10ML VIAL ONE ×2 (12:58→22:51)
[2022-10-13] MEDS: DONEPEZIL HCL 10 MG TABLET (FP) PO SCH (23:55)
[2022-10-14] MEDS: PIPERACILLIN/TAZOB 3.375 GM 3.375 GM in DEXTROSE 5%-WATER - 50 ML IVPB SCH ×3 (02:13→17:39)
[2022-10-14] MEDS: INSULIN (LEVEMIR) 100 UNITS/ML UNITS SQ SCH ×2 (06:49→22:50)
[2022-10-14] MEDS: INSULIN SLIDING SCALE (NOVOLOG) 1 VIAL SQ SCH ×4 (06:49→22:50)
[2022-10-14 08:58] LABS: EOS % 2.7 % (0-4.5); HEMATOCRIT 39.1 % (35.4-49); LYMPH % 22.1 % (8-40); MCHC 33.2 g/dl (32.0-35.9); MEAN CELL VOLUME 87.5 fl (80-96); NEUT % 65.2 % (42.8-82.8); PLATELET COUNT 233 10^3/uL (134-434); RBC 4.47 M/mm3 (4.00-5.60); WHITE BLOOD COUNT 5.8 K/mm3 (4.0-10.0)
[2022-10-14 09:28] LABS: CALCIUM 9.2 mg/dL (8.5-10.1)
[2022-10-14 09:29] LABS: ALBUMIN 3.5 g/dl (3.4-5.0); BLOOD UREA NITROGEN 36.2 mg/dL (7-18); CREATININE 1.6 mg/dL (0.55-1.3); MAGNESIUM 2.3 mg/dL (1.8-2.4)
[2022-10-14 09:31] LABS: BILIRUBIN,TOTAL 0.6 mg/dL (0.2-1); TOT PROT 7.4 g/dl (6.4-8.2)
[2022-10-14 09:32] LABS: PHOSPHOROUS 3.8 mg/dL (2.5-4.9)
[2022-10-14] MEDS: DOXYCYCLINE HYCLATE 100 MG CAPSULE PO SCH ×2 (09:56→17:39)
[2022-10-14] MEDS: NYSTATIN 100,000 UNIT/GM TOPICAL CREAM 15 GM TUBE TP SCH ×2 (09:58→22:43)
[2022-10-14] MEDS: ENOXAPARIN NA (PORCINE) 40 MG/0.4 ML DISP.SYRIN SQ SCH ×2 (09:58→22:43)
[2022-10-14] MEDS: ACETAMINOPHEN 1000 MG/100 ML BAG IVPB PRN ×2 (12:27→22:44)
[2022-10-14] MEDS: DONEPEZIL HCL 10 MG TABLET (FP) PO SCH (22:43)
[2022-10-15] MEDS: PIPERACILLIN/TAZOB 3.375 GM 3.375 GM in DEXTROSE 5%-WATER - 50 ML IVPB SCH ×3 (03:01→17:56)
[2022-10-15] MEDS: INSULIN (LEVEMIR) 100 UNITS/ML UNITS SQ SCH ×2 (06:37→21:52)
[2022-10-15] MEDS: INSULIN SLIDING SCALE (NOVOLOG) 1 VIAL SQ SCH ×4 (06:37→21:57)
[2022-10-15 08:32] LABS: BASO % 1.1 % (0-2.0); EOS % 2.1 % (0-4.5); HEMATOCRIT 38.5 % (35.4-49); HEMOGLOBIN 12.9 GM/dL (11.7-16.9); LYMPH % 22.6 % (8-40); MCH 29.9 pg (25.7-33.7); MCHC 33.4 g/dl (32.0-35.9); MEAN CELL VOLUME 89.4 fl (80-96); MEAN PLT VOLUME 8.4 fl (7.5-11.1); MONO % 9.8 % (3.8-10.2); NEUT % 64.4 % (42.8-82.8); PLATELET COUNT 233 10^3/uL (134-434); RDW 14.6 % (11.9-15.9); WHITE BLOOD COUNT 5.8 K/mm3 (4.0-10.0)
[2022-10-15 08:59] LABS: BLOOD UREA NITROGEN 33.4 mg/dL (7-18); CALCIUM 8.9 mg/dL (8.5-10.1)
[2022-10-15] MEDS: LOSARTAN POTASSIUM 50 MG TABLET PO SCH (08:59)
[2022-10-15] MEDS: ENOXAPARIN NA (PORCINE) 40 MG/0.4 ML DISP.SYRIN SQ SCH ×2 (08:59→21:51)
[2022-10-15] MEDS: DOXYCYCLINE HYCLATE 100 MG CAPSULE PO SCH ×2 (08:59→17:56)
[2022-10-15] MEDS: NYSTATIN 100,000 UNIT/GM TOPICAL CREAM 15 GM TUBE TP SCH ×2 (09:00→21:52)
[2022-10-15 09:03] LABS: CREATININE 1.5 mg/dL (0.55-1.3)
[2022-10-15] MEDS ORDERED: INSULIN (NOVOLOG) ASPART 100 UNITS/ML 10ML VIAL ONE (12:43)
[2022-10-15] MEDS: ACETAMINOPHEN 500 MG TABLET (FP) PO PRN ×2 (14:57→22:05)
[2022-10-15] MEDS: DONEPEZIL HCL 10 MG TABLET (FP) PO SCH (21:51)
[2022-10-16] MEDS: PIPERACILLIN/TAZOB 3.375 GM 3.375 GM in DEXTROSE 5%-WATER - 50 ML IVPB SCH ×2 (02:12→09:58)
[2022-10-16] MEDS: INSULIN (LEVEMIR) 100 UNITS/ML UNITS SQ SCH ×2 (06:38→21:11)
[2022-10-16] MEDS: INSULIN SLIDING SCALE (NOVOLOG) 1 VIAL SQ SCH ×4 (06:38→21:13)
[2022-10-16 08:33] LABS: CALCIUM 8.8 mg/dL (8.5-10.1)
[2022-10-16 08:34] LABS: BLOOD UREA NITROGEN 30.4 mg/dL (7-18)
[2022-10-16 08:37] LABS: CREATININE 1.5 mg/dL (0.55-1.3)
[2022-10-16] MEDS: NYSTATIN 100,000 UNIT/GM TOPICAL CREAM 15 GM TUBE TP SCH ×2 (09:51→21:07)
[2022-10-16] MEDS: DOXYCYCLINE HYCLATE 100 MG CAPSULE PO SCH ×2 (09:57→17:37)
[2022-10-16] MEDS: ACETAMINOPHEN 500 MG TABLET (FP) PO PRN ×2 (09:57→21:07)
[2022-10-16] MEDS: LOSARTAN POTASSIUM 50 MG TABLET PO SCH (09:58)
[2022-10-16] MEDS: ENOXAPARIN NA (PORCINE) 40 MG/0.4 ML DISP.SYRIN SQ SCH (09:58)
[2022-10-16] MEDS: AMOX TR/POT CLAV 875MG/125MG TABLETS (FP) PO SCH (17:37)
[2022-10-16] MEDS: HEPARIN NA (PORCINE) 5,000 UNITS/ML 1ML VIAL SQ SCH (21:07)
[2022-10-16] MEDS: DONEPEZIL HCL 10 MG TABLET (FP) PO SCH (21:07)
[2022-10-16] MEDS ORDERED: INSULIN (LEVEMIR) 100 UNITS/ML UNITS SQ ONE (21:10)
[2022-10-16] MEDS ORDERED: INSULIN (NOVOLOG) ASPART 100 UNITS/ML 10ML VIAL ONE (21:10)
[2022-10-16] MEDS ORDERED: CLOTRIMAZOLE 1% CREAM TP SCH (22:00)
[2022-10-17] MEDS: INSULIN SLIDING SCALE (NOVOLOG) 1 VIAL SQ SCH ×4 (06:52→22:19)
[2022-10-17] MEDS: HEPARIN NA (PORCINE) 5,000 UNITS/ML 1ML VIAL SQ SCH ×3 (06:52→22:19)
[2022-10-17] MEDS: INSULIN (LEVEMIR) 100 UNITS/ML UNITS SQ SCH ×2 (06:52→22:19)
[2022-10-17 08:22] LABS: BASO % 1.1 % (0-2.0); EOS % 1.9 % (0-4.5); HEMATOCRIT 39.1 % (35.4-49); HEMOGLOBIN 12.9 GM/dL (11.7-16.9); LYMPH % 21.9 % (8-40); MCH 29.1 pg (25.7-33.7); MEAN CELL VOLUME 88.1 fl (80-96); MEAN PLT VOLUME 8.2 fl (7.5-11.1); MONO % 8.5 % (3.8-10.2); NEUT % 66.6 % (42.8-82.8); PLATELET COUNT 245 10^3/uL (134-434); RBC 4.43 M/mm3 (4.00-5.60); RDW 15.2 % (11.9-15.9); WHITE BLOOD COUNT 5.9 K/mm3 (4.0-10.0)
[2022-10-17] MEDS: AMOX TR/POT CLAV 875MG/125MG TABLETS (FP) PO SCH ×2 (08:55→17:39)
[2022-10-17 09:09] LABS: ALBUMIN 3.5 g/dl (3.4-5.0); BLOOD UREA NITROGEN 27.6 mg/dL (7-18); CALCIUM 9.1 mg/dL (8.5-10.1); MAGNESIUM 2.2 mg/dL (1.8-2.4)
[2022-10-17 09:13] LABS: CREATININE 1.3 mg/dL (0.55-1.3); PHOSPHOROUS 3.4 mg/dL (2.5-4.9)
[2022-10-17 09:14] LABS: TOT PROT 7.3 g/dl (6.4-8.2)
[2022-10-17 09:15] LABS: BILIRUBIN,TOTAL 0.5 mg/dL (0.2-1)
[2022-10-17] MEDS: LOSARTAN POTASSIUM 50 MG TABLET PO SCH (10:44)
[2022-10-17] MEDS: DOXYCYCLINE HYCLATE 100 MG CAPSULE PO SCH ×2 (10:44→17:39)
[2022-10-17] MEDS: NYSTATIN 100,000 UNIT/GM TOPICAL CREAM 15 GM TUBE TP SCH ×2 (13:52→22:19)
[2022-10-17] MEDS: ACETAMINOPHEN 500 MG TABLET (FP) PO PRN ×2 (13:57→22:17)
[2022-10-17] MEDS ORDERED: INSULIN (NOVOLOG) ASPART 100 UNITS/ML 10ML VIAL ONE (21:32)
[2022-10-17] MEDS: DONEPEZIL HCL 10 MG TABLET (FP) PO SCH (22:17)
[2022-10-18] MEDS: HEPARIN NA (PORCINE) 5,000 UNITS/ML 1ML VIAL SQ SCH (06:10)
[2022-10-18] MEDS: INSULIN SLIDING SCALE (NOVOLOG) 1 VIAL SQ SCH (06:11)
[2022-10-18] MEDS: INSULIN (LEVEMIR) 100 UNITS/ML UNITS SQ SCH (06:11)
[2022-10-18] MEDS: ACETAMINOPHEN 500 MG TABLET (FP) PO PRN (06:11)
[2022-10-18 06:50] VITALS: RESP 18
[2022-10-18 07:49] LABS: BASO % 1.1 % (0-2.0); EOS % 1.6 % (0-4.5); HEMATOCRIT 38.5 % (35.4-49); HEMOGLOBIN 12.6 GM/dL (11.7-16.9); LYMPH % 27.8 % (8-40); MCH 28.9 pg (25.7-33.7); MCHC 32.8 g/dl (32.0-35.9); MEAN CELL VOLUME 88.1 fl (80-96); MONO % 6.9 % (3.8-10.2); NEUT % 62.6 % (42.8-82.8); PLATELET COUNT 245 10^3/uL (134-434); RBC 4.37 M/mm3 (4.00-5.60); RDW 14.7 % (11.9-15.9); WHITE BLOOD COUNT 5.5 K/mm3 (4.0-10.0)
[2022-10-18 08:09] LABS: ALBUMIN 3.4 g/dl (3.4-5.0); CALCIUM 8.8 mg/dL (8.5-10.1)
[2022-10-18 08:12] LABS: CREATININE 1.3 mg/dL (0.55-1.3); PHOSPHOROUS 3.5 mg/dL (2.5-4.9)
[2022-10-18 08:13] LABS: BILIRUBIN,TOTAL 0.6 mg/dL (0.2-1); TOT PROT 7.2 g/dl (6.4-8.2)
[2022-10-18 08:41] VITALS: BP 139/74; PULSE 73; TEMP 98.2
[2022-10-18] MEDS: AMOX TR/POT CLAV 875MG/125MG TABLETS (FP) PO SCH (08:42)
[2022-10-18] MEDS: DOXYCYCLINE HYCLATE 100 MG CAPSULE PO SCH (09:25)
[2022-10-18] MEDS: LOSARTAN POTASSIUM 50 MG TABLET PO SCH (09:25)
[2022-10-18] MEDS: NYSTATIN 100,000 UNIT/GM TOPICAL CREAM 15 GM TUBE TP SCH (09:26)
== END 2022-10-18 11:35 | disposition home health service (06) ==
LOC: JER 12:56 → UNDOADMOB 17:47 → UNDOADMIN 17:47 → INTOOBSV 17:47 → JERBED 17:47 → J5S 23:33 → JERBED 10-11 14:56 → J5S 10-11 14:56 → J7W 10-13 11:12
PROVIDERS: ADMIT Internal Medicine; ATTEND Internal Medicine
PROC: 3E033NZ Introduction of Analgesics, Hypnotics, Sedatives into Peripheral Vein, Percutaneous Approach (ICD-10-PCS; principal; 2022-10-11)
PROC: 3E03329 Introduction of Other Anti-infective into Peripheral Vein, Percutaneous Approach (ICD-10-PCS; 2022-10-11)
PROC: 3E013VG Introduction of Insulin into Subcutaneous Tissue, Percutaneous Approach (ICD-10-PCS; 2022-10-11)
PROC: 3E023GC Introduction of Other Therapeutic Substance into Muscle, Percutaneous Approach (ICD-10-PCS; 2022-10-11)
PROC: 3E0337Z Introduction of Electrolytic and Water Balance Substance into Peripheral Vein, Percutaneous Approach (ICD-10-PCS; 2022-10-11)
DX: I87.2 Venous insufficiency (chronic) (peripheral) (principal); I89.0 Lymphedema, not elsewhere classified; B35.1 Tinea unguium; F03.90 Unspecified dementia, unspecified severity, without behavioral disturbance, psychotic disturbance, mood disturbance, and anxiety; I10 Essential (primary) hypertension; R06.02 Shortness of breath; R60.0 Localized edema; L53.8 Other specified erythematous conditions; Z29.8 Encounter for other specified prophylactic measures; E11.9 Type 2 diabetes mellitus without complications; E66.01 Morbid (severe) obesity due to excess calories; Z68.42 Body mass index [BMI] 45.0-49.9, adult
CPT/HCPCS: 0241U-QW; 36415; 80048; 80053; 82962; 83036; 83735; 83880; 84100; 84484; 85025; 85027; 85651; 86140; 87040; 87081; 93005; 93010; 93970-TC; 96361; 96365; 96372; 96375; 96376; 97116-GP; 97162-GP; 99285-25; G0378; J1644

== ENCOUNTER 2023-01-03 12:15 | Inpatient (IN) | payer OTHER ==
[2023-01-03] MEDS ORDERED: PIPERACILLIN/TAZOB 4.5 GM 4.5 GM in DEXTROSE 5%-WATER 100 ML IVPB ONE (14:13)
[2023-01-03] MEDS ORDERED: VANCOMYCIN 1 GM in D5W (PRE-DOCKED) 1,000 MG/250 ML (RESTRICTED TO ID ONLY IVPB ONE (14:13)
[2023-01-03] MEDS ORDERED: ACETAMINOPHEN 1000 MG/100 ML BAG IVPB ONE (14:15)
[2023-01-03 14:38] LABS: BASO % 0.8 % (0-2.0); EOS % 1.3 % (0-4.5); LYMPH % 14.9 % (8-40); MCH 29.8 pg (25.7-33.7); MEAN CELL VOLUME 87.7 fl (80-96); MEAN PLT VOLUME 8.5 fl (7.5-11.1); MONO % 7.4 % (3.8-10.2); NEUT % 75.6 % (42.8-82.8); PLATELET COUNT 262 10^3/uL (134-434); RBC 4.68 M/mm3 (4.00-5.60); RDW 14.5 % (11.9-15.9); WHITE BLOOD COUNT 8.4 K/mm3 (4.0-10.0)
[2023-01-03 14:56] LABS: POTASSIUM 4.5 mmol/L (3.5-5.1)
[2023-01-03 14:59] LABS: ALBUMIN 3.7 g/dl (3.4-5.0); BLOOD UREA NITROGEN 25.4 mg/dL (7-18)
[2023-01-03 15:02] LABS: CREATININE 1.2 mg/dL (0.55-1.3)
[2023-01-03 15:03] LABS: BILIRUBIN,TOTAL 0.6 mg/dL (0.2-1); TOT PROT 7.8 g/dl (6.4-8.2)
[2023-01-03] MEDS ORDERED: VANCOMYCIN/WATER FOR INJ (PEG) 1,000 MG/200 ML BAG IVPB ONE (16:58)
[2023-01-03 18:22] VITALS: BMI 46.3
[2023-01-03] MEDS ORDERED: PIPERACILLIN/TAZOB 3.375 GM 3.375 GM in DEXTROSE 5%-WATER - 50 ML IVPB SCH (20:00)
[2023-01-03] MEDS ORDERED: VANCOMYCIN 2,000 MG in DEXTROSE 5%-WATER - 500 ML IVPB SCH (22:00)
[2023-01-03] MEDS ORDERED: CEFEPIME HCL/D5W 2 GM/50 ML BAG IVPB SCH (22:00)
[2023-01-03] MEDS: CEFEPIME 2 GM in DEXTROSE 5%-WATER 100 ML IVPB SCH (22:23)
[2023-01-03] MEDS: ENOXAPARIN NA (PORCINE) 40 MG/0.4 ML DISP.SYRIN SQ SCH (22:23)
[2023-01-03] MEDS: ACETAMINOPHEN 325 MG TABLET (FP) PO PRN (22:25)
[2023-01-03] MEDS: INSULIN SLIDING SCALE (NOVOLOG) 1 VIAL SQ SCH (22:31)
[2023-01-04] MEDS: VANCOMYCIN/WATER 2 GRAMS 2,000 MG/400 ML PIGGYBACK IVPB SCH ×2 (01:12→10:52)
[2023-01-04] MEDS: INSULIN SLIDING SCALE (NOVOLOG) 1 VIAL SQ SCH ×4 (06:20→21:21)
[2023-01-04 08:07] LABS: POTASSIUM 4.4 mmol/L (3.5-5.1)
[2023-01-04 08:16] LABS: BASO % 0.8 % (0-2.0); EOS % 1.8 % (0-4.5); HEMATOCRIT 37.2 % (35.4-49); HEMOGLOBIN 12.8 GM/dL (11.7-16.9); LYMPH % 14.7 % (8-40); MCH 30.4 pg (25.7-33.7); MCHC 34.6 g/dl (32.0-35.9); MEAN PLT VOLUME 8.2 fl (7.5-11.1); MONO % 9.6 % (3.8-10.2); NEUT % 73.1 % (42.8-82.8); PLATELET COUNT 226 10^3/uL (134-434); RBC 4.22 M/mm3 (4.00-5.60); RDW 14.4 % (11.9-15.9); WHITE BLOOD COUNT 6.9 K/mm3 (4.0-10.0)
[2023-01-04 08:35] LABS: CALCIUM 9.1 mg/dL (8.5-10.1)
[2023-01-04 08:36] LABS: ALBUMIN 3.2 g/dl (3.4-5.0); BLOOD UREA NITROGEN 28.9 mg/dL (7-18)
[2023-01-04 08:39] LABS: CREATININE 1.4 mg/dL (0.55-1.3)
[2023-01-04 08:40] LABS: BILIRUBIN,TOTAL 0.7 mg/dL (0.2-1)
[2023-01-04] MEDS ORDERED: ACETAMINOPHEN 1000 MG/100 ML BAG IVPB ONE (09:03)
[2023-01-04] MEDS: CEFEPIME 2 GM in DEXTROSE 5%-WATER 100 ML IVPB SCH (09:21)
[2023-01-04] MEDS: ENOXAPARIN NA (PORCINE) 40 MG/0.4 ML DISP.SYRIN SQ SCH ×2 (09:21→21:21)
[2023-01-04] MEDS: LOSARTAN POTASSIUM 50 MG TABLET PO SCH (09:21)
[2023-01-04] MEDS: FUROSEMIDE 20 MG TABLET (FP) PO SCH (09:21)
[2023-01-04] MEDS ORDERED: PIPERACILLIN/TAZOBACTAM 3.375 GM VIAL IVPB ONE (13:07)
[2023-01-04] MEDS: PIPERACILLIN/TAZOB 3.375 GM 3.375 GM in DEXTROSE 5%-WATER - 50 ML IVPB SCH ×2 (13:11→17:16)
[2023-01-04] MEDS ORDERED: INSULIN (NOVOLOG) ASPART 100 UNITS/ML 10ML VIAL ONE (16:33)
[2023-01-04] MEDS: ACETAMINOPHEN 325 MG TABLET (FP) PO PRN ×2 (16:35→23:15)
[2023-01-05] MEDS: PIPERACILLIN/TAZOB 3.375 GM 3.375 GM in DEXTROSE 5%-WATER - 50 ML IVPB SCH ×3 (01:05→17:55)
[2023-01-05] MEDS: INSULIN SLIDING SCALE (NOVOLOG) 1 VIAL SQ SCH ×4 (06:03→21:48)
[2023-01-05 08:42] LABS: POTASSIUM 4.5 mmol/L (3.5-5.1)
[2023-01-05 08:45] LABS: CALCIUM 8.9 mg/dL (8.5-10.1)
[2023-01-05 08:46] LABS: BLOOD UREA NITROGEN 27.4 mg/dL (7-18)
[2023-01-05 08:49] LABS: CREATININE 1.4 mg/dL (0.55-1.3)
[2023-01-05] MEDS ORDERED: PIPERACILLIN/TAZOBACTAM 3.375 GM VIAL IVPB ONE (08:51)
[2023-01-05] MEDS: ENOXAPARIN NA (PORCINE) 40 MG/0.4 ML DISP.SYRIN SQ SCH ×2 (09:03→21:43)
[2023-01-05] MEDS: LOSARTAN POTASSIUM 50 MG TABLET PO SCH (09:03)
[2023-01-05] MEDS: FUROSEMIDE 20 MG TABLET (FP) PO SCH (09:03)
[2023-01-05] MEDS: ACETAMINOPHEN 325 MG TABLET (FP) PO PRN ×2 (11:18→23:20)
[2023-01-05] MEDS ORDERED: FUROSEMIDE 40 MG/4 ML INJECTABLE VIAL IVPUSH ONE (14:00)
[2023-01-06] MEDS: PIPERACILLIN/TAZOB 3.375 GM 3.375 GM in DEXTROSE 5%-WATER - 50 ML IVPB SCH ×3 (01:49→17:38)
[2023-01-06] MEDS: INSULIN SLIDING SCALE (NOVOLOG) 1 VIAL SQ SCH ×4 (06:02→21:36)
[2023-01-06] MEDS ORDERED: INSULIN (LEVEMIR) 100 UNITS/ML UNITS SQ ONE (08:20)
[2023-01-06] MEDS: ENOXAPARIN NA (PORCINE) 40 MG/0.4 ML DISP.SYRIN SQ SCH ×2 (09:22→21:33)
[2023-01-06] MEDS: FUROSEMIDE 40 MG TABLET (FP) PO SCH (09:23)
[2023-01-06] MEDS: LOSARTAN POTASSIUM 50 MG TABLET PO SCH (09:23)
[2023-01-06 09:49] LABS: POTASSIUM 4.3 mmol/L (3.5-5.1)
[2023-01-06 10:13] LABS: BLOOD UREA NITROGEN 29.7 mg/dL (7-18); CALCIUM 9.3 mg/dL (8.5-10.1)
[2023-01-06 10:17] LABS: CREATININE 1.6 mg/dL (0.55-1.3)
[2023-01-06] MEDS: ACETAMINOPHEN 325 MG TABLET (FP) PO PRN ×2 (10:54→17:55)
[2023-01-07] MEDS ORDERED: PIPERACILLIN/TAZOBACTAM 3.375 GM VIAL IVPB ONE (01:11)
[2023-01-07] MEDS: PIPERACILLIN/TAZOB 3.375 GM 3.375 GM in DEXTROSE 5%-WATER - 50 ML IVPB SCH ×3 (01:22→17:38)
[2023-01-07] MEDS: INSULIN SLIDING SCALE (NOVOLOG) 1 VIAL SQ SCH ×4 (06:01→21:40)
[2023-01-07] MEDS ORDERED: INSULIN (NOVOLOG) ASPART 100 UNITS/ML 10ML VIAL ONE (06:59)
[2023-01-07] MEDS: LOSARTAN POTASSIUM 50 MG TABLET PO SCH (09:20)
[2023-01-07] MEDS: ENOXAPARIN NA (PORCINE) 40 MG/0.4 ML DISP.SYRIN SQ SCH ×2 (09:20→21:40)
[2023-01-07] MEDS: FUROSEMIDE 40 MG TABLET (FP) PO SCH (09:20)
[2023-01-07 10:03] LABS: BASO % 1.2 % (0-2.0); EOS % 2.9 % (0-4.5); HEMATOCRIT 37.1 % (35.4-49); HEMOGLOBIN 12.7 GM/dL (11.7-16.9); LYMPH % 18.8 % (8-40); MCHC 34.3 g/dl (32.0-35.9); MEAN CELL VOLUME 87.4 fl (80-96); MEAN PLT VOLUME 8.1 fl (7.5-11.1); MONO % 9.3 % (3.8-10.2); NEUT % 67.8 % (42.8-82.8); PLATELET COUNT 226 10^3/uL (134-434); RBC 4.24 M/mm3 (4.00-5.60); RDW 14.8 % (11.9-15.9); WHITE BLOOD COUNT 5.2 K/mm3 (4.0-10.0)
[2023-01-07 10:12] LABS: POTASSIUM 4.3 mmol/L (3.5-5.1)
[2023-01-07 10:16] LABS: CALCIUM 8.8 mg/dL (8.5-10.1)
[2023-01-07 10:17] LABS: BLOOD UREA NITROGEN 28.2 mg/dL (7-18)
[2023-01-07] MEDS: ACETAMINOPHEN 325 MG TABLET (FP) PO PRN ×2 (10:19→18:26)
[2023-01-07 10:20] LABS: CREATININE 1.5 mg/dL (0.55-1.3)
[2023-01-07] MEDS ORDERED: DOXYCYCLINE INJECTION 100 MG in DEXTROSE 5%-WATER 100 ML IVPB ONE (11:54)
[2023-01-07] MEDS ORDERED: DOXYCYCLINE HYCLATE 100 MG VIAL ONE (13:18)
[2023-01-07] MEDS: DOXYCYCLINE HYCLATE 100 MG CAPSULE PO SCH (17:37)
[2023-01-08] MEDS ORDERED: PIPERACILLIN/TAZOBACTAM 3.375 GM VIAL IVPB ONE (01:09)
[2023-01-08] MEDS: PIPERACILLIN/TAZOB 3.375 GM 3.375 GM in DEXTROSE 5%-WATER - 50 ML IVPB SCH ×3 (01:30→17:09)
[2023-01-08] MEDS: ACETAMINOPHEN 325 MG TABLET (FP) PO PRN (01:31)
[2023-01-08] MEDS: INSULIN SLIDING SCALE (NOVOLOG) 1 VIAL SQ SCH ×4 (06:25→21:28)
[2023-01-08 07:39] LABS: HEMATOCRIT 37.2 % (35.4-49); HEMOGLOBIN 12.8 GM/dL (11.7-16.9); MCHC 34.5 g/dl (32.0-35.9); MEAN CELL VOLUME 86.9 fl (80-96); MEAN PLT VOLUME 8.4 fl (7.5-11.1); PLATELET COUNT 235 10^3/uL (134-434); RBC 4.28 M/mm3 (4.00-5.60); RDW 14.5 % (11.9-15.9); WHITE BLOOD COUNT 5.5 K/mm3 (4.0-10.0)
[2023-01-08 07:52] LABS: POTASSIUM 4.2 mmol/L (3.5-5.1)
[2023-01-08 07:59] LABS: CALCIUM 8.9 mg/dL (8.5-10.1)
[2023-01-08 08:03] LABS: CREATININE 1.5 mg/dL (0.55-1.3); PHOSPHOROUS 4.5 mg/dL (2.5-4.9)
[2023-01-08] MEDS: DOXYCYCLINE HYCLATE 100 MG CAPSULE PO SCH ×2 (10:53→17:08)
[2023-01-08] MEDS: ENOXAPARIN NA (PORCINE) 40 MG/0.4 ML DISP.SYRIN SQ SCH ×2 (10:53→21:24)
[2023-01-08] MEDS: LOSARTAN POTASSIUM 50 MG TABLET PO SCH (10:53)
[2023-01-08] MEDS: FUROSEMIDE 40 MG TABLET (FP) PO SCH (10:54)
[2023-01-08] MEDS: FUROSEMIDE 40 MG TABLET (FP) PO ONE ×2 (13:44→14:38)
[2023-01-08 14:58] VITALS: RESP 18
[2023-01-08] MEDS ORDERED: INSULIN (NOVOLOG) ASPART 100 UNITS/ML 10ML VIAL ONE (21:27)
[2023-01-09] MEDS ORDERED: PIPERACILLIN/TAZOBACTAM 3.375 GM VIAL IVPB ONE (01:17)
[2023-01-09] MEDS: PIPERACILLIN/TAZOB 3.375 GM 3.375 GM in DEXTROSE 5%-WATER - 50 ML IVPB SCH ×3 (02:08→17:17)
[2023-01-09] MEDS: INSULIN SLIDING SCALE (NOVOLOG) 1 VIAL SQ SCH ×4 (06:39→21:48)
[2023-01-09] MEDS ORDERED: INSULIN (NOVOLOG) ASPART 100 UNITS/ML 10ML VIAL ONE ×4 (07:39→21:42)
[2023-01-09] MEDS: LOSARTAN POTASSIUM 50 MG TABLET PO SCH (09:04)
[2023-01-09] MEDS: FUROSEMIDE 40 MG TABLET (FP) PO SCH (09:04)
[2023-01-09] MEDS: ENOXAPARIN NA (PORCINE) 40 MG/0.4 ML DISP.SYRIN SQ SCH ×2 (09:04→21:48)
[2023-01-09] MEDS: DOXYCYCLINE HYCLATE 100 MG CAPSULE PO SCH ×2 (09:04→17:17)
[2023-01-09 12:11] LABS: BASO % 1.2 % (0-2.0); EOS % 2.5 % (0-4.5); HEMATOCRIT 36.4 % (35.4-49); HEMOGLOBIN 12.4 GM/dL (11.7-16.9); LYMPH % 20.2 % (8-40); MCH 29.6 pg (25.7-33.7); MEAN CELL VOLUME 87.1 fl (80-96); MEAN PLT VOLUME 7.9 fl (7.5-11.1); MONO % 10.6 % (3.8-10.2); NEUT % 65.5 % (42.8-82.8); PLATELET COUNT 221 10^3/uL (134-434); RBC 4.18 M/mm3 (4.00-5.60); RDW 14.6 % (11.9-15.9); WHITE BLOOD COUNT 5.1 K/mm3 (4.0-10.0)
[2023-01-09 12:33] LABS: ALBUMIN 3.2 g/dl (3.4-5.0); BLOOD UREA NITROGEN 26.1 mg/dL (7-18); CALCIUM 8.8 mg/dL (8.5-10.1); MAGNESIUM 1.9 mg/dL (1.8-2.4)
[2023-01-09 12:36] LABS: CREATININE 1.7 mg/dL (0.55-1.3); PHOSPHOROUS 3.6 mg/dL (2.5-4.9)
[2023-01-09 12:38] LABS: BILIRUBIN,TOTAL 0.9 mg/dL (0.2-1)
[2023-01-09 12:42] LABS: POTASSIUM 4.2 mmol/L (3.5-5.1)
[2023-01-09] MEDS: INSULIN (LEVEMIR) 100 UNITS/ML UNITS SQ SCH (21:48)
[2023-01-09] MEDS: ACETAMINOPHEN 325 MG TABLET (FP) PO PRN (22:39)
[2023-01-10] MEDS: PIPERACILLIN/TAZOB 3.375 GM 3.375 GM in DEXTROSE 5%-WATER - 50 ML IVPB SCH ×3 (02:56→18:23)
[2023-01-10] MEDS: INSULIN SLIDING SCALE (NOVOLOG) 1 VIAL SQ SCH ×4 (06:42→23:18)
[2023-01-10] MEDS ORDERED: LACTATED RINGERS SOLUTION 1000 ML INFUS.BAG IV ONE (09:48)
[2023-01-10] MEDS ORDERED: LACTATED RINGERS SOLUTION 500 ML IV SCH (10:15)
[2023-01-10] MEDS ORDERED: PIPERACILLIN/TAZOBACTAM 3.375 GM VIAL IVPB ONE (10:20)
[2023-01-10 10:24] LABS: HEMATOCRIT 39.2 % (35.4-49); MCH 29.1 pg (25.7-33.7); MCHC 33.1 g/dl (32.0-35.9); MEAN PLT VOLUME 8.6 fl (7.5-11.1); PLATELET COUNT 239 10^3/uL (134-434); RBC 4.45 M/mm3 (4.00-5.60); RDW 14.4 % (11.9-15.9); WHITE BLOOD COUNT 5.8 K/mm3 (4.0-10.0)
[2023-01-10] MEDS: DOXYCYCLINE HYCLATE 100 MG CAPSULE PO SCH ×2 (10:31→18:23)
[2023-01-10] MEDS: FUROSEMIDE 40 MG TABLET (FP) PO SCH (10:32)
[2023-01-10] MEDS: LOSARTAN POTASSIUM 50 MG TABLET PO SCH (10:32)
[2023-01-10] MEDS: ENOXAPARIN NA (PORCINE) 40 MG/0.4 ML DISP.SYRIN SQ SCH ×2 (10:34→23:19)
[2023-01-10] MEDS ORDERED: INSULIN (NOVOLOG) ASPART 100 UNITS/ML 10ML VIAL ONE ×2 (10:46→22:24)
[2023-01-10 11:09] LABS: BLOOD UREA NITROGEN 28.1 mg/dL (7-18); CALCIUM 9.1 mg/dL (8.5-10.1); MAGNESIUM 2.1 mg/dL (1.8-2.4)
[2023-01-10 11:13] LABS: CREATININE 1.6 mg/dL (0.55-1.3); PHOSPHOROUS 3.7 mg/dL (2.5-4.9)
[2023-01-10] MEDS: amLODIPine BESYLATE 5 MG TABLET (FP) PO SCH (14:33)
[2023-01-10] MEDS: INSULIN (LEVEMIR) 100 UNITS/ML UNITS SQ SCH (23:19)
[2023-01-11] MEDS: ACETAMINOPHEN 325 MG TABLET (FP) PO PRN (00:06)
[2023-01-11] MEDS: PIPERACILLIN/TAZOB 3.375 GM 3.375 GM in DEXTROSE 5%-WATER - 50 ML IVPB SCH ×2 (02:53→09:19)
[2023-01-11] MEDS: INSULIN SLIDING SCALE (NOVOLOG) 1 VIAL SQ SCH ×2 (06:51→11:27)
[2023-01-11 09:12] VITALS: BP 144/70; PULSE 77; TEMP 97.8
[2023-01-11] MEDS: FUROSEMIDE 40 MG TABLET (FP) PO SCH (09:20)
[2023-01-11] MEDS: LOSARTAN POTASSIUM 50 MG TABLET PO SCH (09:20)
[2023-01-11] MEDS: amLODIPine BESYLATE 5 MG TABLET (FP) PO SCH (09:20)
[2023-01-11] MEDS: ENOXAPARIN NA (PORCINE) 40 MG/0.4 ML DISP.SYRIN SQ SCH (09:20)
[2023-01-11] MEDS: DOXYCYCLINE HYCLATE 100 MG CAPSULE PO SCH (09:20)
[2023-01-11 10:21] LABS: BLOOD UREA NITROGEN 28.6 mg/dL (7-18)
[2023-01-11 10:24] LABS: CREATININE 1.5 mg/dL (0.55-1.3)
[2023-01-11] MEDS ORDERED: INSULIN (NOVOLOG) ASPART 100 UNITS/ML 10ML VIAL ONE (11:26)
== END 2023-01-11 14:42 | disposition home or self-care (01) | DRG 872 ==
LOC: JER 12:15 → JERBED 16:28 → OBSVTOIN 17:26 → J6S 17:59
PROVIDERS: ADMIT Internal Medicine; ATTEND Internal Medicine
DX: A41.89 Other specified sepsis (principal); L03.116 Cellulitis of left lower limb; Z68.42 Body mass index [BMI] 45.0-49.9, adult; L03.115 Cellulitis of right lower limb; I12.9 Hypertensive chronic kidney disease with stage 1 through stage 4 chronic kidney disease, or unspecified chronic kidney disease; E11.22 Type 2 diabetes mellitus with diabetic chronic kidney disease; N18.2 Chronic kidney disease, stage 2 (mild); E66.01 Morbid (severe) obesity due to excess calories; I89.0 Lymphedema, not elsewhere classified; I87.2 Venous insufficiency (chronic) (peripheral); E11.65 Type 2 diabetes mellitus with hyperglycemia; B96.20 Unspecified Escherichia coli [E. coli] as the cause of diseases classified elsewhere; B96.4 Proteus (mirabilis) (morganii) as the cause of diseases classified elsewhere; B95.2 Enterococcus as the cause of diseases classified elsewhere; B95.1 Streptococcus, group B, as the cause of diseases classified elsewhere; B95.62 Methicillin resistant Staphylococcus aureus infection as the cause of diseases classified elsewhere; F03.90 Unspecified dementia, unspecified severity, without behavioral disturbance, psychotic disturbance, mood disturbance, and anxiety
CPT/HCPCS: 0241U-QW; 36415; 73590-TC-LT-FY; 73590-TC-RT-FY; 73610-TC-LT-FY; 73610-TC-RT-FY; 73630-TC-LT; 73630-TC-RT-FY; 80048; 80053; 82962; 83036; 83735; 84100; 85025; 85027; 86140; 87040; 87070; 87076; 87077; 87186; 87205; 93005; 93010; 93970-TC; 99285-25; G0378; G0463-25

== ENCOUNTER 2023-02-19 12:19 | Inpatient (IN) | payer OTHER ==
[2023-02-19] MEDS ORDERED: FUROSEMIDE 40 MG/4 ML INJECTABLE VIAL IVPUSH ONE (14:17)
[2023-02-19] MEDS ORDERED: VANCOMYCIN 1 GM in D5W (PRE-DOCKED) 1,000 MG/250 ML (RESTRICTED TO ID ONLY IVPB ONE (14:17)
[2023-02-19] MEDS ORDERED: CEFAZOLIN 1 GM in DEXTROSE 5%-WATER - 50 ML IVPB ONE (14:18)
[2023-02-19] MEDS ORDERED: FUROSEMIDE 40 MG/4 ML INJECTABLE VIAL ONE (14:33)
[2023-02-19] MEDS ORDERED: ceFAZolin SODIUM 1 GM VIAL ONE (14:33)
[2023-02-19] MEDS ORDERED: VANCOMYCIN/WATER FOR INJ (PEG) 1,000 MG/200 ML BAG IVPB ONE (15:08)
[2023-02-19 16:08] LABS: BASO % 0.8 % (0-2.0); EOS % 2.2 % (0-4.5); HEMATOCRIT 37.2 % (35.4-49); HEMOGLOBIN 12.2 GM/dL (11.7-16.9); LYMPH % 15.1 % (8-40); MCH 28.4 pg (25.7-33.7); MCHC 32.8 g/dl (32.0-35.9); MEAN CELL VOLUME 86.8 fl (80-96); MEAN PLT VOLUME 8.3 fl (7.5-11.1); MONO % 9.2 % (3.8-10.2); NEUT % 72.7 % (42.8-82.8); PLATELET COUNT 219 10^3/uL (134-434); RBC 4.29 M/mm3 (4.00-5.60); RDW 15.2 % (11.9-15.9); WHITE BLOOD COUNT 6.7 K/mm3 (4.0-10.0)
[2023-02-19 16:18] LABS: POTASSIUM 4.1 mmol/L (3.5-5.1)
[2023-02-19 16:20] LABS: CALCIUM 8.9 mg/dL (8.5-10.1)
[2023-02-19 16:21] LABS: ALBUMIN 3.3 g/dl (3.4-5.0); BLOOD UREA NITROGEN 29.8 mg/dL (7-18); MAGNESIUM 2.1 mg/dL (1.8-2.4)
[2023-02-19 16:24] LABS: CREATININE 1.6 mg/dL (0.55-1.3)
[2023-02-19 16:25] LABS: BILIRUBIN,TOTAL 0.3 mg/dL (0.2-1); TOT PROT 7.1 g/dl (6.4-8.2)
[2023-02-19 17:56] LABS: N-TERMINAL BNP 131.8 pg/ml (5-450)
[2023-02-19] MEDS ORDERED: AMPICILLIN NA/SULBACTAM NA 3 GM VIAL ONE (19:36)
[2023-02-19] MEDS: AMPICILLIN NA/SULBACTAM NA 3 GM in SODIUM CHLORIDE 100 ML IVPB SCH (20:34)
[2023-02-19] MEDS: DOXYCYCLINE INJECTION 100 MG in DEXTROSE 5%-WATER 100 ML IVPB SCH (22:16)
[2023-02-19] MEDS: HEPARIN NA (PORCINE) 5,000 UNITS/ML 1ML VIAL SQ SCH (22:16)
[2023-02-19] MEDS: ACETAMINOPHEN 1000 MG/100 ML BAG IVPB PRN (23:22)
[2023-02-19] MEDS: INSULIN SLIDING SCALE (NOVOLOG) 1 VIAL SQ SCH (23:29)
[2023-02-20 01:01] VITALS: BMI 50.3
[2023-02-20] MEDS: AMPICILLIN NA/SULBACTAM NA 3 GM in SODIUM CHLORIDE 100 ML IVPB SCH ×3 (03:05→18:45)
[2023-02-20] MEDS: CLOTRIMAZOLE 1%TOPICAL SOLUTION 30 ML BOTTLE TP SCH ×2 (06:05→10:34)
[2023-02-20] MEDS: INSULIN SLIDING SCALE (NOVOLOG) 1 VIAL SQ SCH ×3 (06:48→17:26)
[2023-02-20 08:57] LABS: BASO % 0.7 % (0-2.0); HEMATOCRIT 35.3 % (35.4-49); HEMOGLOBIN 11.9 GM/dL (11.7-16.9); LYMPH % 13.6 % (8-40); MCH 28.9 pg (25.7-33.7); MCHC 33.8 g/dl (32.0-35.9); MEAN CELL VOLUME 85.6 fl (80-96); MONO % 8.2 % (3.8-10.2); NEUT % 75.5 % (42.8-82.8); PLATELET COUNT 214 10^3/uL (134-434); RBC 4.13 M/mm3 (4.00-5.60); RDW 15.2 % (11.9-15.9); WHITE BLOOD COUNT 5.9 K/mm3 (4.0-10.0)
[2023-02-20 09:27] LABS: BLOOD UREA NITROGEN 22.9 mg/dL (7-18); CALCIUM 8.4 mg/dL (8.5-10.1)
[2023-02-20 09:30] LABS: CREATININE 1.4 mg/dL (0.55-1.3)
[2023-02-20] MEDS: HEPARIN NA (PORCINE) 5,000 UNITS/ML 1ML VIAL SQ SCH ×2 (09:51→21:48)
[2023-02-20] MEDS: FUROSEMIDE 40 MG/4 ML INJECTABLE VIAL IVPUSH SCH (09:51)
[2023-02-20] MEDS: DOXYCYCLINE INJECTION 100 MG in DEXTROSE 5%-WATER 100 ML IVPB SCH ×2 (09:52→21:48)
[2023-02-20] MEDS: ACETAMINOPHEN 1000 MG/100 ML BAG IVPB PRN (09:53)
[2023-02-20] MEDS: CLOTRIMAZOLE 1% 10 ML TOPICAL SOLUTION TP SCH ×2 (10:45→21:50)
[2023-02-20 11:11] LABS: ERYTHROCYTE SEDIMENTATION RATE 21 mm/hr (0-20)
[2023-02-20] MEDS: amLODIPine BESYLATE 5 MG TABLET (FP) PO SCH (16:45)
[2023-02-20] MEDS: LOSARTAN POTASSIUM 50 MG TABLET PO SCH (16:45)
[2023-02-21] MEDS: AMPICILLIN NA/SULBACTAM NA 3 GM in SODIUM CHLORIDE 100 ML IVPB SCH ×2 (02:07→09:05)
[2023-02-21] MEDS: INSULIN SLIDING SCALE (NOVOLOG) 1 VIAL SQ SCH ×3 (06:44→16:41)
[2023-02-21] MEDS: ACETAMINOPHEN 325 MG TABLET (FP) PO PRN ×2 (07:53→17:48)
[2023-02-21] MEDS: HEPARIN NA (PORCINE) 5,000 UNITS/ML 1ML VIAL SQ SCH ×2 (09:04→22:48)
[2023-02-21] MEDS: FUROSEMIDE 40 MG/4 ML INJECTABLE VIAL IVPUSH SCH (09:05)
[2023-02-21] MEDS: LOSARTAN POTASSIUM 50 MG TABLET PO SCH (09:05)
[2023-02-21] MEDS: amLODIPine BESYLATE 5 MG TABLET (FP) PO SCH (09:06)
[2023-02-21] MEDS: DOXYCYCLINE INJECTION 100 MG in DEXTROSE 5%-WATER 100 ML IVPB SCH (10:01)
[2023-02-21] MEDS: CLOTRIMAZOLE 1% 10 ML TOPICAL SOLUTION TP SCH ×2 (10:12→22:49)
[2023-02-21 10:22] LABS: BASO % 0.8 % (0-2.0); EOS % 2.6 % (0-4.5); HEMATOCRIT 37.5 % (35.4-49); HEMOGLOBIN 12.6 GM/dL (11.7-16.9); LYMPH % 16.7 % (8-40); MCHC 33.6 g/dl (32.0-35.9); MEAN CELL VOLUME 86.5 fl (80-96); MEAN PLT VOLUME 8.3 fl (7.5-11.1); MONO % 9.5 % (3.8-10.2); NEUT % 70.4 % (42.8-82.8); PLATELET COUNT 216 10^3/uL (134-434); RBC 4.34 M/mm3 (4.00-5.60); RDW 15.3 % (11.9-15.9)
[2023-02-21 10:29] LABS: POTASSIUM 4.3 mmol/L (3.5-5.1)
[2023-02-21 10:34] LABS: CALCIUM 8.9 mg/dL (8.5-10.1)
[2023-02-21 10:35] LABS: ALBUMIN 3.1 g/dl (3.4-5.0)
[2023-02-21 10:38] LABS: CREATININE 1.3 mg/dL (0.55-1.3)
[2023-02-21 10:39] LABS: BILIRUBIN,TOTAL 0.6 mg/dL (0.2-1); TOT PROT 6.6 g/dl (6.4-8.2)
[2023-02-21] MEDS: DOXYCYCLINE HYCLATE 100 MG CAPSULE PO SCH (17:48)
[2023-02-21] MEDS: AMOX TR/POT CLAV 875MG/125MG TABLETS (FP) PO SCH (17:48)
[2023-02-22] MEDS: INSULIN SLIDING SCALE (NOVOLOG) 1 VIAL SQ SCH ×3 (06:46→16:47)
[2023-02-22] MEDS: AMOX TR/POT CLAV 875MG/125MG TABLETS (FP) PO SCH ×2 (09:00→17:19)
[2023-02-22] MEDS: FUROSEMIDE 40 MG/4 ML INJECTABLE VIAL IVPUSH SCH (09:13)
[2023-02-22] MEDS: amLODIPine BESYLATE 5 MG TABLET (FP) PO SCH (09:13)
[2023-02-22] MEDS: HEPARIN NA (PORCINE) 5,000 UNITS/ML 1ML VIAL SQ SCH ×2 (09:13→22:25)
[2023-02-22] MEDS: ACETAMINOPHEN 325 MG TABLET (FP) PO PRN ×2 (09:13→22:44)
[2023-02-22] MEDS: LOSARTAN POTASSIUM 50 MG TABLET PO SCH (09:13)
[2023-02-22] MEDS: CLOTRIMAZOLE 1% 10 ML TOPICAL SOLUTION TP SCH ×2 (09:25→22:24)
[2023-02-22] MEDS: DOXYCYCLINE HYCLATE 100 MG CAPSULE PO SCH ×2 (09:26→17:19)
[2023-02-22] MEDS: MINERAL OIL/PET HY-PHL TOPICAL OINTMENT 454 GM JAR TP SCH (13:11)
[2023-02-23] MEDS: INSULIN SLIDING SCALE (NOVOLOG) 1 VIAL SQ SCH ×2 (06:34→11:43)
[2023-02-23] MEDS: AMOX TR/POT CLAV 875MG/125MG TABLETS (FP) PO SCH (08:53)
[2023-02-23] MEDS: ACETAMINOPHEN 325 MG TABLET (FP) PO PRN (09:21)
[2023-02-23] MEDS: amLODIPine BESYLATE 5 MG TABLET (FP) PO SCH (09:23)
[2023-02-23] MEDS: DOXYCYCLINE HYCLATE 100 MG CAPSULE PO SCH (09:23)
[2023-02-23] MEDS: LOSARTAN POTASSIUM 50 MG TABLET PO SCH (09:23)
[2023-02-23] MEDS: HEPARIN NA (PORCINE) 5,000 UNITS/ML 1ML VIAL SQ SCH (09:23)
[2023-02-23] MEDS: FUROSEMIDE 40 MG/4 ML INJECTABLE VIAL IVPUSH SCH (09:23)
[2023-02-23] MEDS: CLOTRIMAZOLE 1% 10 ML TOPICAL SOLUTION TP SCH (09:27)
[2023-02-23] MEDS: MINERAL OIL/PET HY-PHL TOPICAL OINTMENT 454 GM JAR TP SCH (09:27)
[2023-02-23 10:08] LABS: BASO % 0.8 % (0-2.0); EOS % 3.6 % (0-4.5); HEMATOCRIT 41.3 % (35.4-49); HEMOGLOBIN 13.5 GM/dL (11.7-16.9); LYMPH % 21.7 % (8-40); MCH 28.8 pg (25.7-33.7); MCHC 32.7 g/dl (32.0-35.9); MEAN CELL VOLUME 88.1 fl (80-96); MEAN PLT VOLUME 8.7 fl (7.5-11.1); MONO % 8.2 % (3.8-10.2); NEUT % 65.7 % (42.8-82.8); PLATELET COUNT 260 10^3/uL (134-434); RBC 4.69 M/mm3 (4.00-5.60); RDW 15.3 % (11.9-15.9); WHITE BLOOD COUNT 5.8 K/mm3 (4.0-10.0)
[2023-02-23 10:24] LABS: POTASSIUM 4.1 mmol/L (3.5-5.1)
[2023-02-23 10:28] LABS: ALBUMIN 3.4 g/dl (3.4-5.0); BLOOD UREA NITROGEN 26.3 mg/dL (7-18); CALCIUM 9.4 mg/dL (8.5-10.1)
[2023-02-23 10:31] LABS: CREATININE 1.3 mg/dL (0.55-1.3)
[2023-02-23 10:33] LABS: BILIRUBIN,TOTAL 0.6 mg/dL (0.2-1); TOT PROT 7.5 g/dl (6.4-8.2)
[2023-02-23 13:50] VITALS: BP 149/76; PULSE 82; RESP 18; TEMP 98
== END 2023-02-23 14:11 | disposition home or self-care (01) | DRG 729 ==
LOC: JER 12:19 → JERBED 16:44 → J6S 20:51
PROVIDERS: ADMIT Internal Medicine; ATTEND Internal Medicine
DX: N43.3 Hydrocele, unspecified (principal); L03.115 Cellulitis of right lower limb; Z68.43 Body mass index [BMI] 50.0-59.9, adult; I12.9 Hypertensive chronic kidney disease with stage 1 through stage 4 chronic kidney disease, or unspecified chronic kidney disease; E11.22 Type 2 diabetes mellitus with diabetic chronic kidney disease; N18.2 Chronic kidney disease, stage 2 (mild); E66.01 Morbid (severe) obesity due to excess calories; I87.2 Venous insufficiency (chronic) (peripheral); E87.70 Fluid overload, unspecified; N50.89 Other specified disorders of the male genital organs
CPT/HCPCS: 36415; 71045-TC-FY; 76705-TC; 76870-TC; 80048; 80053; 82962; 83735; 83880; 85025; 85651; 93005; 93010; 97116-GP; 97162-GP; 99285-25; J1644

== ENCOUNTER 2023-10-12 16:45 | Inpatient (IN) | payer OTHER ==
[2023-10-12 16:50] VITALS: BMI 43.0
[2023-10-12 18:11] LABS: BASO % 0.6 % (0-2.0); EOS % 3.3 % (0-4.5); HEMOGLOBIN 14.3 GM/dL (11.7-16.9); LYMPH % 18.8 % (8-40); MCH 30.2 pg (25.7-33.7); MEAN PLT VOLUME 8.3 fl (7.5-11.1); MONO % 8.2 % (3.8-10.2); NEUT % 69.1 % (42.8-82.8); PLATELET COUNT 222 10^3/uL (134-434); RBC 4.72 M/mm3 (4.00-5.60); RDW 14.7 % (11.9-15.9); WHITE BLOOD COUNT 7.2 K/mm3 (4.0-10.0)
[2023-10-12] MEDS ORDERED: PIPERACILLIN/TAZOB 4.5 GM 4.5 GM/100 ML BAG IVPB ONE (18:29)
[2023-10-12] MEDS: PIPERACILLIN/TAZOB 4.5 GM 4.5 GM in DEXTROSE 5%-WATER 100 ML IVPB ONE (18:33)
[2023-10-12 18:37] LABS: POTASSIUM 4.2 mmol/L (3.5-5.1)
[2023-10-12 18:38] LABS: CALCIUM 8.6 mg/dL (8.5-10.1)
[2023-10-12 18:39] LABS: ALBUMIN 3.8 g/dl (3.4-5.0)
[2023-10-12 18:42] LABS: CREATININE 1.3 mg/dL (0.55-1.3)
[2023-10-12 18:44] LABS: BILIRUBIN,TOTAL 0.3 mg/dL (0.2-1); TOT PROT 7.7 g/dl (6.4-8.2)
[2023-10-12 18:57] LABS: ERYTHROCYTE SEDIMENTATION RATE 17 mm/hr (0-20)
[2023-10-12] MEDS ORDERED: VANCOMYCIN 1 GRAM (PRE-DOCKED) 1,000 MG/250 ML BAG IVPB ONE (19:20)
[2023-10-12] MEDS: VANCOMYCIN 1,000 MG in DEXTROSE 5%-WATER - 250 ML IVPB ONE (19:29)
[2023-10-13] MEDS ORDERED: PIPERACILLIN/TAZOB 4.5 GM 4.5 GM in DEXTROSE 5%-WATER 100 ML IVPB SCH ×2 (02:00→03:00)
[2023-10-13] MEDS ORDERED: FUROSEMIDE 40 MG/4 ML INJECTABLE VIAL IVPUSH SCH (02:00)
[2023-10-13] MEDS: PIPERACILLIN/TAZOB 4.5 GM 4.5 GM in DEXTROSE 5%-WATER 100 ML IVPB SCH (02:44)
[2023-10-13] MEDS: INSULIN ASPART SLIDING SCALE (NOVOLOG) 1 VIAL SQ SCH (02:47)
[2023-10-13] MEDS: ACETAMINOPHEN 1000 MG/100 ML BAG IVPB ONE (03:15)
[2023-10-13] MEDS: FUROSEMIDE 40 MG/4 ML INJECTABLE VIAL IVPUSH SCH ×2 (03:15→13:19)
[2023-10-13] MEDS: HEPARIN NA (PORCINE) 5,000 UNITS/ML 1ML VIAL SQ SCH (05:44)
[2023-10-13] MEDS: VANCOMYCIN 2,000 MG in DEXTROSE 5%-WATER - 250 ML IVPB SCH (08:02)
[2023-10-13 08:58] LABS: POTASSIUM 3.7 mmol/L (3.5-5.1)
[2023-10-13 09:09] LABS: BLOOD UREA NITROGEN 19.7 mg/dL (7-18); CALCIUM 8.7 mg/dL (8.5-10.1)
[2023-10-13 09:10] LABS: ALBUMIN 3.4 g/dl (3.4-5.0); MAGNESIUM 2.1 mg/dL (1.8-2.4)
[2023-10-13 09:13] LABS: CREATININE 1.4 mg/dL (0.55-1.3); PHOSPHOROUS 3.4 mg/dL (2.5-4.9)
[2023-10-13 09:14] LABS: BILIRUBIN,TOTAL 0.6 mg/dL (0.2-1); TOT PROT 6.8 g/dl (6.4-8.2)
[2023-10-13] MEDS: VANCOMYCIN/WATER 2 GRAMS 2,000 MG/400 ML PIGGYBACK IVPB SCH (09:18)
[2023-10-13] MEDS: LOSARTAN POTASSIUM 50 MG TABLET PO SCH (09:18)
[2023-10-13 09:22] LABS: HEMATOCRIT 39.7 % (35.4-49); HEMOGLOBIN 13.5 GM/dL (11.7-16.9); MEAN CELL VOLUME 88.3 fl (80-96); MEAN PLT VOLUME 8.6 fl (7.5-11.1); PLATELET COUNT 198 10^3/uL (134-434); RBC 4.49 M/mm3 (4.00-5.60); RDW 14.8 % (11.9-15.9); WHITE BLOOD COUNT 7.1 K/mm3 (4.0-10.0)
[2023-10-13] MEDS ORDERED: LOSARTAN POTASSIUM 50 MG TABLET PO SCH (10:00)
[2023-10-13] MEDS ORDERED: VANCOMYCIN 1,000 MG in DEXTROSE 5%-WATER - 250 ML IVPB SCH (10:00)
[2023-10-13] MEDS: BACITRACIN ZINC 15 GM TUBE TOPICAL OINTMENT TP SCH (13:02)
[2023-10-13] MEDS: oxyCODONE HCL 5 MG TABLET PO PRN (13:02)
[2023-10-13] MEDS: DOXYCYCLINE HYCLATE 100 MG CAPSULE PO SCH (17:45)
[2023-10-13] MEDS ORDERED: PIPERACILLIN/TAZOB 3.375 GM 3.375 GM in DEXTROSE 5%-WATER - 50 ML IVPB SCH (18:00)
[2023-10-13] MEDS: NYSTATIN POWDER 100,000 UNITS/GM - 15 GM TOPICAL POWDER TP SCH (18:13)
[2023-10-14] MEDS ORDERED: INSULIN ASPART SLIDING SCALE (NOVOLOG) 1 VIAL SQ ONE (06:38)
[2023-10-14 08:34] LABS: EOS % 3.5 % (0-4.5); HEMOGLOBIN 14.9 GM/dL (11.7-16.9); LYMPH % 15.9 % (8-40); MCHC 33.9 g/dl (32.0-35.9); MEAN CELL VOLUME 88.6 fl (80-96); MEAN PLT VOLUME 8.3 fl (7.5-11.1); MONO % 7.5 % (3.8-10.2); NEUT % 72.1 % (42.8-82.8); PLATELET COUNT 204 10^3/uL (134-434); RBC 4.97 M/mm3 (4.00-5.60); RDW 15.1 % (11.9-15.9); WHITE BLOOD COUNT 6.7 K/mm3 (4.0-10.0)
[2023-10-14 09:00] LABS: CALCIUM 8.7 mg/dL (8.5-10.1); POTASSIUM 3.6 mmol/L (3.5-5.1)
[2023-10-14 09:01] LABS: BLOOD UREA NITROGEN 22.4 mg/dL (7-18); MAGNESIUM 1.9 mg/dL (1.8-2.4)
[2023-10-14 09:04] LABS: CREATININE 1.4 mg/dL (0.55-1.3)
[2023-10-15] MEDS ORDERED: INSULIN ASPART SLIDING SCALE (NOVOLOG) 1 VIAL SQ ONE (06:50)
[2023-10-15 08:29] LABS: BASO % 0.7 % (0-2.0); EOS % 2.7 % (0-4.5); HEMATOCRIT 43.4 % (35.4-49); HEMOGLOBIN 15.3 GM/dL (11.7-16.9); LYMPH % 15.1 % (8-40); MCH 30.8 pg (25.7-33.7); MCHC 35.2 g/dl (32.0-35.9); MEAN CELL VOLUME 87.5 fl (80-96); MEAN PLT VOLUME 8.3 fl (7.5-11.1); MONO % 8.2 % (3.8-10.2); NEUT % 73.3 % (42.8-82.8); PLATELET COUNT 224 10^3/uL (134-434); RBC 4.96 M/mm3 (4.00-5.60); RDW 14.9 % (11.9-15.9); WHITE BLOOD COUNT 8.2 K/mm3 (4.0-10.0)
[2023-10-15 08:39] LABS: POTASSIUM 3.8 mmol/L (3.5-5.1)
[2023-10-15 08:42] LABS: ALBUMIN 3.4 g/dl (3.4-5.0); BLOOD UREA NITROGEN 24.7 mg/dL (7-18); CALCIUM 8.9 mg/dL (8.5-10.1)
[2023-10-15 08:44] LABS: MAGNESIUM 1.7 mg/dL (1.8-2.4)
[2023-10-15 08:45] LABS: CREATININE 1.3 mg/dL (0.55-1.3)
[2023-10-15 08:46] LABS: PHOSPHOROUS 3.7 mg/dL (2.5-4.9); TOT PROT 7.4 g/dl (6.4-8.2)
[2023-10-15 08:48] LABS: BILIRUBIN,TOTAL 0.7 mg/dL (0.2-1)
[2023-10-15] MEDS: MAGNESIUM 1GM/D5W 100ML - 100 ML IVPB IVPB ONE (16:53)
[2023-10-15] MEDS: INSULIN ASPART SLIDING SCALE (NOVOLOG) 1 VIAL SQ SCH (22:20)
[2023-10-17 08:14] LABS: BASO % 0.7 % (0-2.0); EOS % 2.9 % (0-4.5); HEMATOCRIT 44.9 % (35.4-49); LYMPH % 18.7 % (8-40); MCH 29.7 pg (25.7-33.7); MCHC 33.4 g/dl (32.0-35.9); MEAN CELL VOLUME 88.8 fl (80-96); MEAN PLT VOLUME 8.3 fl (7.5-11.1); MONO % 7.6 % (3.8-10.2); NEUT % 70.1 % (42.8-82.8); PLATELET COUNT 231 10^3/uL (134-434); RBC 5.05 M/mm3 (4.00-5.60); RDW 14.9 % (11.9-15.9); WHITE BLOOD COUNT 8.4 K/mm3 (4.0-10.0)
[2023-10-17 09:17] LABS: POTASSIUM 3.9 mmol/L (3.5-5.1)
[2023-10-17 09:21] LABS: ALBUMIN 3.4 g/dl (3.4-5.0); BLOOD UREA NITROGEN 39.5 mg/dL (7-18); MAGNESIUM 2.3 mg/dL (1.8-2.4)
[2023-10-17 09:24] LABS: CREATININE 1.5 mg/dL (0.55-1.3); PHOSPHOROUS 4.2 mg/dL (2.5-4.9)
[2023-10-17 09:26] LABS: BILIRUBIN,TOTAL 0.7 mg/dL (0.2-1); TOT PROT 7.3 g/dl (6.4-8.2)
[2023-10-18 09:20] LABS: EOS % 3.1 % (0-4.5); HEMATOCRIT 42.8 % (35.4-49); HEMOGLOBIN 14.3 GM/dL (11.7-16.9); MCH 29.6 pg (25.7-33.7); MCHC 33.3 g/dl (32.0-35.9); MEAN PLT VOLUME 8.4 fl (7.5-11.1); MONO % 8.1 % (3.8-10.2); NEUT % 65.8 % (42.8-82.8); PLATELET COUNT 224 10^3/uL (134-434); RBC 4.81 M/mm3 (4.00-5.60); RDW 14.8 % (11.9-15.9); WHITE BLOOD COUNT 7.8 K/mm3 (4.0-10.0)
[2023-10-18 09:37] LABS: POTASSIUM 4.1 mmol/L (3.5-5.1)
[2023-10-18 09:44] LABS: ALBUMIN 3.2 g/dl (3.4-5.0); MAGNESIUM 2.2 mg/dL (1.8-2.4)
[2023-10-18 09:47] LABS: CREATININE 1.4 mg/dL (0.55-1.3); PHOSPHOROUS 3.5 mg/dL (2.5-4.9)
[2023-10-18 09:49] LABS: BILIRUBIN,TOTAL 0.5 mg/dL (0.2-1); TOT PROT 6.9 g/dl (6.4-8.2)
[2023-10-18] MEDS: FUROSEMIDE 40 MG/4 ML INJECTABLE VIAL IVPUSH SCH (10:21)
[2023-10-19 16:10] VITALS: RESP 18
[2023-10-19] MEDS: FUROSEMIDE 40 MG TABLET (FP) PO SCH (18:04)
[2023-10-19] MEDS: ACETAMINOPHEN 325 MG TABLET (FP) PO ONE (21:53)
[2023-10-20] MEDS: oxyCODONE HCL 5 MG TABLET PO PRN (09:14)
[2023-10-22] MEDS ORDERED: INSULIN ASPART SLIDING SCALE (NOVOLOG) 1 VIAL SQ ONE (11:17)
[2023-10-22 21:10] VITALS: BP 146/77; PULSE 76; TEMP 98.6
== END 2023-10-22 22:30 | DRG 603 ==
LOC: JER 16:45 → JERBED 18:13 → J6S 10-13 02:07
PROVIDERS: ADMIT Internal Medicine; ATTEND Internal Medicine
DX: L03.116 Cellulitis of left lower limb (principal); Z68.41 Body mass index [BMI] 40.0-44.9, adult; I87.2 Venous insufficiency (chronic) (peripheral); L03.115 Cellulitis of right lower limb; F03.90 Unspecified dementia, unspecified severity, without behavioral disturbance, psychotic disturbance, mood disturbance, and anxiety; I12.9 Hypertensive chronic kidney disease with stage 1 through stage 4 chronic kidney disease, or unspecified chronic kidney disease; E11.22 Type 2 diabetes mellitus with diabetic chronic kidney disease; I89.0 Lymphedema, not elsewhere classified; E86.0 Dehydration; N18.2 Chronic kidney disease, stage 2 (mild); E87.70 Fluid overload, unspecified; E66.01 Morbid (severe) obesity due to excess calories
CPT/HCPCS: 36415; 80048; 80053; 82308; 82962; 83036; 83735; 84100; 85025; 85027; 85651; 86140; 87081; 87635; 93005; 93010; 93970-TC; 97116-GP; 99285-25; J0131; J1644

== ENCOUNTER 2024-07-02 12:48 | Observation (INO) | payer OTHER ==
[2024-07-02] MEDS: SODIUM CHLORIDE 0.9% 500 ML INFUS.BAG IV ONE (14:20)
[2024-07-02] MEDS: ACETAMINOPHEN 1000 MG/100 ML BAG IVPB ONE (14:20)
[2024-07-02 14:54] VITALS: BMI 35.9
[2024-07-02] MEDS ORDERED: ACETAMINOPHEN INJECTION 100 ML ONE (15:10)
[2024-07-02 15:37] LABS: VENOUS BASE EXCESS 5.5 mmol/L (-2-2); VENOUS O2 SATURATION 64.3 % (70-80); VENOUS PH 7.447 (7.310-7.410)
[2024-07-02 15:39] LABS: BASO % 0.4 % (0-2.0); EOS % 2.8 % (0-4.5); HEMATOCRIT 38.2 % (35.4-49); HEMOGLOBIN 12.5 GM/dL (11.7-16.9); LYMPH % 9.5 % (8-40); MCH 27.7 pg (25.7-33.7); MCHC 32.8 g/dl (32.0-35.9); MEAN CELL VOLUME 84.4 fl (80-96); MEAN PLT VOLUME 7.4 fl (7.5-11.1); MONO % 7.3 % (3.8-10.2); PLATELET COUNT 359 10^3/uL (134-434); RBC 4.53 M/mm3 (4.00-5.60); RDW 15.4 % (11.9-15.9); WHITE BLOOD COUNT 8.7 K/mm3 (4.0-10.0)
[2024-07-02 15:48] LABS: INR 1.22 (0.83-1.09); PROTHROMBIN TIME (PATIENT) 13.9 SEC (9.7-13.0)
[2024-07-02 15:50] LABS: ACTIVATED PTT 39.8 SECONDS (25.2-36.5)
[2024-07-02 16:04] LABS: CHLORIDE 103 mmol/L (98-107); POTASSIUM 4.4 mmol/L (3.5-5.1); SODIUM 139 mmol/L (136-145)
[2024-07-02 16:07] LABS: ALBUMIN 2.4 g/dl (3.4-5.0); ANION GAP 8 mmol/L (4-13); BLOOD UREA NITROGEN 24.9 mg/dL (7-18); CALCIUM 8.9 mg/dL (8.5-10.1); CO2 29 mmol/L (21-32); GLUCOSE,RANDOM 148 mg/dL (74-106); MAGNESIUM 1.9 mg/dL (1.8-2.4)
[2024-07-02 16:10] LABS: CREATININE 1.4 mg/dL (0.55-1.3); PHOSPHOROUS 2.9 mg/dL (2.5-4.9); SGOT/AST 26 U/L (15-37); SGPT/ALT 43 U/L (13-61)
[2024-07-02 16:12] LABS: BILIRUBIN,TOTAL 0.4 mg/dL (0.2-1); TOT PROT 6.4 g/dl (6.4-8.2)
[2024-07-02 16:13] LABS: ALK PHOS 86 U/L (45-117)
[2024-07-02 16:15] LABS: N-TERMINAL BNP 1699.3 pg/ml (5-450)
[2024-07-02 17:28] LABS: EPI CELLS 4 /uL (0-25.1); HYALINE CASTS 0 /uL (0-3.1); URINE APPEARANCE CLOUDY; URINE BACTERIA 14 /uL (0-1359); URINE BILIRUBIN NEGATIVE (NEGATIVE); URINE COLOR YELLOW; URINE GLUCOSE (UA) NEGATIVE (NEGATIVE); URINE KETONE NEGATIVE (NEGATIVE); URINE LEUK ESTERASE NEGATIVE (NEGATIVE); URINE NITRITE NEGATIVE (NEGATIVE); URINE PROTEIN TRACE (NEGATIVE); URINE RBC 18 /uL (0-23.9); URINE WBC 31 /uL (0-25.8)
[2024-07-02] MEDS: INSULIN ASPART SLIDING SCALE (NOVOLOG) 1 VIAL SQ SCH (22:34)
[2024-07-02] MEDS: HEPARIN NA (PORCINE) 5,000 UNITS/ML 1ML VIAL SQ SCH (22:34)
[2024-07-02 23:21] LABS: URINE BARBITURATES NEGATIVE (NEGATIVE); URINE BENZODIAZEPINES NEGATIVE (NEGATIVE)
[2024-07-02 23:22] LABS: METHADONE, UR NEGATIVE (NEGATIVE); OPIATES, URI NEGATIVE (NEGATIVE); PHENCYCLIDINE,URINE NEGATIVE (NEGATIVE)
[2024-07-02 23:26] LABS: COCAINE, UR POSITIVE (NEGATIVE); URINE AMPHETAMINES NEGATIVE (NEGATIVE)
[2024-07-03 04:13] LABS: HIV INTERPRETATION NEGATIVE (NEGATIVE)
[2024-07-03 10:37] LABS: HEMATOCRIT 34.4 % (35.4-49); HEMOGLOBIN 11.3 GM/dL (11.7-16.9); MCH 28.1 pg (25.7-33.7); MCHC 32.9 g/dl (32.0-35.9); MEAN CELL VOLUME 85.5 fl (80-96); MEAN PLT VOLUME 7.9 fl (7.5-11.1); PLATELET COUNT 327 10^3/uL (134-434); RBC 4.02 M/mm3 (4.00-5.60); RDW 15.1 % (11.9-15.9); WHITE BLOOD COUNT 8.3 K/mm3 (4.0-10.0)
[2024-07-03 10:50] LABS: POTASSIUM 4.2 mmol/L (3.5-5.1)
[2024-07-03 11:01] LABS: CALCIUM 8.3 mg/dL (8.5-10.1)
[2024-07-03 11:02] LABS: ALBUMIN 2.2 g/dl (3.4-5.0); BLOOD UREA NITROGEN 23.1 mg/dL (7-18); MAGNESIUM 1.8 mg/dL (1.8-2.4)
[2024-07-03 11:05] LABS: CREATININE 1.2 mg/dL (0.55-1.3); PHOSPHOROUS 3.5 mg/dL (2.5-4.9)
[2024-07-03 11:06] LABS: BILIRUBIN,TOTAL 0.5 mg/dL (0.2-1); CHOLESTEROL 130 mg/dL (50-200)
[2024-07-03 11:08] LABS: LDL CHOLESTEROL (ONLY SJRH) 81 mg/dL (5-100)
[2024-07-03 11:09] LABS: HDL CHOLESTEROL 32 mg/dL (40-60)
[2024-07-03] MEDS: COLLAGENASE CLOSTRIDIUM HIST. 30 GRAMS TUBE TP SCH (16:28)
[2024-07-03] MEDS: BACITRACIN ZINC 15 GM TUBE TOPICAL OINTMENT TP SCH (20:07)
[2024-07-03] MEDS: ACETAMINOPHEN 325 MG TABLET (FP) PO PRN (21:39)
[2024-07-04 08:31] LABS: POTASSIUM 4.2 mmol/L (3.5-5.1)
[2024-07-04 08:34] LABS: ALBUMIN 2.3 g/dl (3.4-5.0); BLOOD UREA NITROGEN 22.9 mg/dL (7-18); CALCIUM 8.6 mg/dL (8.5-10.1); MAGNESIUM 1.8 mg/dL (1.8-2.4)
[2024-07-04 08:38] LABS: CREATININE 1.2 mg/dL (0.55-1.3)
[2024-07-04 08:39] LABS: BILIRUBIN,TOTAL 0.5 mg/dL (0.2-1); TOT PROT 6.2 g/dl (6.4-8.2)
[2024-07-04 10:58] LABS: BASO % 0.7 % (0-2.0); EOS % 2.8 % (0-4.5); HEMOGLOBIN 11.8 GM/dL (11.7-16.9); LYMPH % 13.7 % (8-40); MCH 27.9 pg (25.7-33.7); MCHC 32.7 g/dl (32.0-35.9); MEAN CELL VOLUME 85.2 fl (80-96); MEAN PLT VOLUME 7.8 fl (7.5-11.1); NEUT % 74.8 % (42.8-82.8); PLATELET COUNT 311 10^3/uL (134-434); RBC 4.22 M/mm3 (4.00-5.60); RDW 14.8 % (11.9-15.9); WHITE BLOOD COUNT 8.6 K/mm3 (4.0-10.0)
[2024-07-04] MEDS: MULTIVITAMINS (DAILY MVI) TABLET (FP) PO SCH (12:27)
[2024-07-04] MEDS: MINERAL OIL/PET HY-PHL TOPICAL OINTMENT 454 GM JAR TP SCH (15:19)
[2024-07-04] MEDS: NYSTATIN POWDER 100,000 UNITS/GM - 15 GM TOPICAL POWDER TP SCH (15:20)
[2024-07-04] MEDS: AMINO ACIDS/PROTEIN HYDROLYS 30 ML LIQUID.PKT PO SCH (17:33)
[2024-07-05 07:48] LABS: BASO % 0.6 % (0-2.0); EOS % 2.3 % (0-4.5); HEMATOCRIT 34.9 % (35.4-49); HEMOGLOBIN 11.8 GM/dL (11.7-16.9); MCH 28.3 pg (25.7-33.7); MCHC 33.7 g/dl (32.0-35.9); MEAN CELL VOLUME 84.2 fl (80-96); MEAN PLT VOLUME 7.5 fl (7.5-11.1); MONO % 8.3 % (3.8-10.2); NEUT % 74.8 % (42.8-82.8); PLATELET COUNT 338 10^3/uL (134-434); RBC 4.15 M/mm3 (4.00-5.60)
[2024-07-05 08:08] LABS: POTASSIUM 4.2 mmol/L (3.5-5.1)
[2024-07-05 08:15] LABS: CALCIUM 8.6 mg/dL (8.5-10.1)
[2024-07-05 08:16] LABS: ALBUMIN 2.3 g/dl (3.4-5.0); BLOOD UREA NITROGEN 24.5 mg/dL (7-18); MAGNESIUM 1.8 mg/dL (1.8-2.4)
[2024-07-05 08:19] LABS: CREATININE 1.4 mg/dL (0.55-1.3)
[2024-07-05 08:20] LABS: BILIRUBIN,TOTAL 0.3 mg/dL (0.2-1); TOT PROT 6.2 g/dl (6.4-8.2)
[2024-07-05] MEDS ORDERED: LORazepam 1 MG TABLET PO PRN (15:28)
[2024-07-05] MEDS: BACITRACIN ZINC 15 GM TUBE TOPICAL OINTMENT TP SCH (22:43)
[2024-07-06 08:19] LABS: BASO % 0.7 % (0-2.0); EOS % 3.1 % (0-4.5); HEMATOCRIT 34.6 % (35.4-49); HEMOGLOBIN 11.7 GM/dL (11.7-16.9); LYMPH % 14.3 % (8-40); MCH 28.3 pg (25.7-33.7); MCHC 33.6 g/dl (32.0-35.9); MEAN CELL VOLUME 84.1 fl (80-96); MEAN PLT VOLUME 7.7 fl (7.5-11.1); MONO % 7.5 % (3.8-10.2); NEUT % 74.4 % (42.8-82.8); PLATELET COUNT 324 10^3/uL (134-434); RBC 4.12 M/mm3 (4.00-5.60); RDW 15.5 % (11.9-15.9); WHITE BLOOD COUNT 9.9 K/mm3 (4.0-10.0)
[2024-07-06 08:39] LABS: POTASSIUM 4.2 mmol/L (3.5-5.1)
[2024-07-06 08:42] LABS: CALCIUM 8.5 mg/dL (8.5-10.1)
[2024-07-06 08:43] LABS: ALBUMIN 2.3 g/dl (3.4-5.0); BLOOD UREA NITROGEN 25.5 mg/dL (7-18)
[2024-07-06 08:46] LABS: CREATININE 1.1 mg/dL (0.55-1.3)
[2024-07-06 08:48] LABS: BILIRUBIN,TOTAL 0.4 mg/dL (0.2-1)
[2024-07-07] MEDS ORDERED: HYDROCORTISONE 2.5% LOTION - 1 BOTTLE TP PRN (08:00)
[2024-07-07 09:21] VITALS: TEMP 97.9
[2024-07-07 16:16] VITALS: BP 152/79; PULSE 96; RESP 18
== END 2024-07-07 16:53 ==
LOC: JER 12:48 → JERBED 17:49 → J8W 20:46
PROVIDERS: ADMIT Internal Medicine; ATTEND Nurse Practitioner Family
PROC: 3E023GC Introduction of Other Therapeutic Substance into Muscle, Percutaneous Approach (ICD-10-PCS; principal; 2024-07-02)
PROC: 3E033NZ Introduction of Analgesics, Hypnotics, Sedatives into Peripheral Vein, Percutaneous Approach (ICD-10-PCS; 2024-07-02)
PROC: 3E0337Z Introduction of Electrolytic and Water Balance Substance into Peripheral Vein, Percutaneous Approach (ICD-10-PCS; 2024-07-02)
DX: S12.500A Unspecified displaced fracture of sixth cervical vertebra, initial encounter for closed fracture (principal); F03.90 Unspecified dementia, unspecified severity, without behavioral disturbance, psychotic disturbance, mood disturbance, and anxiety; S31.000A Unspecified open wound of lower back and pelvis without penetration into retroperitoneum, initial encounter; X58.XXXA Exposure to other specified factors, initial encounter; I50.9 Heart failure, unspecified; I89.0 Lymphedema, not elsewhere classified; I12.9 Hypertensive chronic kidney disease with stage 1 through stage 4 chronic kidney disease, or unspecified chronic kidney disease; I73.9 Peripheral vascular disease, unspecified; E11.40 Type 2 diabetes mellitus with diabetic neuropathy, unspecified; E11.22 Type 2 diabetes mellitus with diabetic chronic kidney disease; I87.2 Venous insufficiency (chronic) (peripheral); L53.8 Other specified erythematous conditions; R21 Rash and other nonspecific skin eruption; B35.1 Tinea unguium; E66.9 Obesity, unspecified; L03.90 Cellulitis, unspecified
CPT/HCPCS: 0241U-QW; 36415; 70450-TC; 71045-TC-FY; 72125-TC; 76775-TC; 80053; 80061; 80307; 81003; 82550; 82570; 82803; 82962; 83036; 83735; 83880; 84100; 84156; 84443; 84484; 85025; 85027; 85610; 85730; 86803; 87077; 87081; 87086; 87389; 93005; 93010; 93306-TC; 96372; 96374; 97116-GP; 97161-GP; 99285-25; G0378; J0131; J1644